=== PATIENT | female | born 1945 | race Caucasian/White ===

== ENCOUNTER 2020-02-17 13:53 | Outpatient (REF) | payer MEDICARE, OTHER, SELFPAY ==
--- NOTE | 2020-02-17 14:06 | MM_ITS ---
EXAMINATION: MM SCREENING DIGITAL BREAST TOMOSYNTHESIS, BILATERAL CLINICAL INFORMATION: Screening. Asymptomatic. The lifetime risk of breast cancer based on the Tyrer-Cuzick Model is 2%. COMPARISON: Mammography: 12/27/2018, 12/17/2017, 11/23/2016 TECHNIQUE: Digital breast tomosynthesis is performed in both the craniocaudal and mediolateral oblique views along with computer-aided detection (CAD). Synthesized 2D images are generated from the tomosynthesis. FINDINGS: There are scattered areas of fibroglandular density (ACR BI-RADS breast composition Category b). There are no significant masses, abnormal calcifications, or other abnormalities. The axillary nodes are stable. Skin contours are smooth. No significant changes from prior exams. MM/MM tomosynthesis screening BI IMPRESSION: No significant changes from prior studies. ASSESSMENT: BI-RADS 2: Benign RECOMMENDATION: Routine annual mammography screening. This patient's information was entered into a reminder system with a target due date for their next mammogram.
== END 2020-02-17 13:54 | disposition home or self-care (01) ==
LOC: HO.MAMMO 13:53
PROVIDERS: PCP Internal Medicine; Visit Provider Internal Medicine
DX: Z12.31 Encounter for screening mammogram for malignant neoplasm of breast (principal)
CPT/HCPCS: 77063; 77067

== ENCOUNTER 2021-03-12 14:04 | Outpatient (REF) | payer MEDICARE, OTHER, SELFPAY ==
--- NOTE | ~2021-03-12 | MM_ITS ---
EXAMINATION: MM SCREENING DIGITAL BREAST TOMOSYNTHESIS, BILATERAL CLINICAL INFORMATION: Screening. Asymptomatic. The lifetime risk of breast cancer based on the Tyrer-Cuzick Model is 2%. COMPARISON: Mammography: 02/17/2020, 12/27/2018, 12/17/2017 TECHNIQUE: Digital breast tomosynthesis is performed in both the craniocaudal and mediolateral oblique views along with computer-aided detection (CAD). Synthesized 2D images are generated from the tomosynthesis. FINDINGS: There are scattered areas of fibroglandular density (ACR BI-RADS breast composition Category b). There are no significant masses, abnormal calcifications, or other abnormalities. Parenchymal pattern is similar to prior studies. There is no developing density or architectural abnormality. Axillary nodes are stable. Skin contours are smooth. No significant changes. MM/MM tomosynthesis screening BI IMPRESSION: No mammographic evidence of malignancy. ASSESSMENT: BI-RADS 2: Benign RECOMMENDATION: Routine annual mammography screening. This patient's information was entered into a reminder system with a target due date for their next mammogram.
== END 2021-03-12 14:05 | disposition home or self-care (01) ==
LOC: HO.MAMMO 14:04
PROVIDERS: PCP Internal Medicine; Visit Provider Internal Medicine
DX: Z12.31 Encounter for screening mammogram for malignant neoplasm of breast (principal)
CPT/HCPCS: 77063; 77067

== ENCOUNTER 2021-04-03 14:31 | Outpatient (REF) | payer MEDICARE, OTHER, SELFPAY ==
[2021-04-03 15:08] LABS: MANUAL DIFF FLAG NO
[2021-04-03 15:24] LABS: Basophils Percent Auto 0.3 % (0-2); Eosinophils Absolute Auto 0.1 X10*3/uL (0.0-0.4); Eosinophils Percent Auto 1.4 % (0-4); Hematocrit 42.1 % (37.0-47.0); Hemoglobin 13.6 g/dl (12.0-16.0); Imm Gran Abs Auto 0.03 X10*3/uL (0.00-0.03); Imm Gran Pct Auto 0.3 % (0.0-0.4); Lymphocytes Absolute Auto 2.5 X10*3/uL (1.2-4.9); Lymphocytes Percent Auto 25.6 % (20-40); Mean Corpuscular HGB Conc 32.3 g/dl (31.0-35.0); Mean Corpuscular Hemoglobin 27.5 pg (27.0-33.0); Mean Corpuscular Volume 85.2 fL (80.0-98.0); Mean Platelet Volume 9.7 fL (9.4-12.3); Monocytes Absolute Auto 1.2 X10*3/uL (0.1-1.2); Monocytes Percent Auto 12.3 % (2-11); Neutrophils Absolute Auto 5.8 x10*3/uL (2.0-8.3); Neutrophils Percent Auto 60.1 % (45-73); Platelet Count 284 X10*3/uL (160-400); Red Blood Count 4.94 X10*6/uL (4.20-5.50); Red Cell Distribution Width 13.9 % (11.0-16.0); White Blood Count 9.7 X10*3/uL (4.8-10.8)
[2021-04-03 16:10] LABS: T4 Thyroxine 5.6 ug/dL (4.5-12.0); Thyroid Stimulating Hormone 1.62 uIU/mL (0.32-4.0)
== END 2021-04-03 14:32 | disposition home or self-care (01) ==
LOC: HO.LAB 14:31
PROVIDERS: Absent Provider Internal Medicine; PCP Internal Medicine; Visit Provider Internal Medicine Gastroenterology
DX: R19.7 Diarrhea, unspecified (principal)
CPT/HCPCS: 36415; 84436; 84443; 85025

== ENCOUNTER 2021-04-18 09:07 | Outpatient (REF) | payer MEDICARE, OTHER, SELFPAY ==
[2021-04-18 09:51] LABS: Leukocytes Stool Qualitative NEGATIVE (NEGATIVE)
[2021-04-18 10:27] LABS: CDiff Gene PCR NEGATIVE (Negative)
== END 2021-04-18 09:08 | disposition home or self-care (01) ==
LOC: HO.LNP 09:07
PROVIDERS: PCP Internal Medicine; Visit Provider Internal Medicine Gastroenterology
DX: R19.7 Diarrhea, unspecified (principal)
CPT/HCPCS: 87045; 87046; 87177; 87209; 87493; 89055

== ENCOUNTER 2021-12-02 07:04 | Day surgery (SDC) | payer MEDICARE, OTHER, SELFPAY ==
--- NOTE | 2021-12-01 09:46 | HO.ANESPROP2 ---
Documented by User: Rena Grijalva NP 12/01/21 12:33 HPI - Anesthesia Eval Consult details Narrative: 76yo F for Colonoscopy [facility] Past Medical History Medical History (Updated 12/01/21 @ 11:54 by Sadie Sethi RN) Abnormal colonoscopy Diabetes mellitus DJD (degenerative joint disease) High cholesterol HTN (hypertension) Tubular adenoma of colon Surgical History Surgical History (Updated 12/02/21 @ 07:21 by Kyleigh Temple) H/O colonoscopy H/O eye surgery H/O hernia repair H/O thumb surgery H/O: hysterectomy S/P trigger finger release Social History Social History Patient Tobacco Use Status: Former Tobacco user Quit Date: 2012 Years Smoked: 40 Smoked in Last 30 Days: No Use of substances other than those prescribed or required for medical reasons: No Are you DNR?: No Advance Directives: No Advance Directives Information Provided: Yes Meds Allergies Allergy/AdvReac Type Severity Reaction Status Date / Time lisinopril Allergy Severe Cough Verified 12/02/21 07:34 amlodipine [From Norvasc] Allergy Mild Swelling Verified 12/02/21 07:34 irbesartan [From Avapro] Allergy Mild Swelling Verified 12/02/21 07:34 latex [Latex] Allergy Mild RASH Verified 12/02/21 07:19 meperidine [Meperidine] Allergy Mild NAUSEA & Verified 12/02/21 07:19 VOMITING oxycodone Allergy Mild AGITATION Verified 12/02/21 08:02 propoxyphene Allergy Mild AGITATION Verified 12/02/21 07:19 [From Darvocet A500] nickel Allergy Rash Verified 12/02/21 08:02 Home Medications Medication Instructions Recorded Confirmed Last Taken Type atorvastatin 80 mg tablet 1 tab PO DAILY 12/01/21 12/02/21 Unknown History cyclosporine 0.05 % eye drops in a 1 drp ophthalmic (eye) BID 12/01/21 12/02/21 Unknown History dropperette (Restasis) metformin 750 mg tablet,extended 1 tab PO BID 12/01/21 12/02/21 12/01/21 History release 24 hr metoprolol succinate 100 mg 1 tab PO DAILY 12/01/21 12/02/21 Unknown History tablet,extended release 24 hr omeprazole 20 mg capsule,delayed 1 cap PO DAILY 12/01/21 12/02/21 Unknown History release spironolactone 50 mg tablet 1 tab PO DAILY 12/01/21 12/02/21 Unknown History Exam Exam Date and Time: December 01, [id number] Assessment and Plan Assessment Anesthesia Assessment: Chart Reviewed Documented by User: Brendan Dye MD 12/02/21 17:14 [facility] Past Medical History Medical History (Updated 12/01/21 @ 11:54 by Sadie Sethi RN) Abnormal colonoscopy Diabetes mellitus DJD (degenerative joint disease) High cholesterol HTN (hypertension) Tubular adenoma of colon Family History Family history of problems with anesthesia: No Surgical History Surgical History (Updated 12/02/21 @ 07:21 by Kyleigh Temple) H/O colonoscopy H/O eye surgery H/O hernia repair H/O thumb surgery H/O: hysterectomy S/P trigger finger release History of Problems with Anesthesia: No Social History Social History Patient Tobacco Use Status: Former Tobacco user Quit Date: 2012 Years Smoked: 40 Smoked in Last 30 Days: No Use of substances other than those prescribed or required for medical reasons: No Are you DNR?: No Advance Directives: No Advance Directives Information Provided: Yes Meds Allergies Allergy/AdvReac Type Severity Reaction Status Date / Time lisinopril Allergy Severe Cough Verified 12/02/21 07:34 amlodipine [From Norvasc] Allergy Mild Swelling Verified 12/02/21 07:34 irbesartan [From Avapro] Allergy Mild Swelling Verified 12/02/21 07:34 latex [Latex] Allergy Mild RASH Verified 12/02/21 07:19 meperidine [Meperidine] Allergy Mild NAUSEA & Verified 12/02/21 07:19 VOMITING oxycodone Allergy Mild AGITATION Verified 12/02/21 08:02 propoxyphene Allergy Mild AGITATION Verified 12/02/21 07:19 [From Darvocet A500] nickel Allergy Rash Verified 12/02/21 08:02 Home Medications Medication Instructions Recorded Confirmed Last Taken Type atorvastatin 80 mg tablet 1 tab PO DAILY 12/01/21 12/02/21 Unknown History cyclosporine 0.05 % eye drops in a 1 drp ophthalmic (eye) BID 12/01/21 12/02/21 Unknown History dropperette (Restasis) metformin 750 mg tablet,extended 1 tab PO BID 12/01/21 12/02/21 12/01/21 History release 24 hr metoprolol succinate 100 mg 1 tab PO DAILY 12/01/21 12/02/21 Unknown History tablet,extended release 24 hr omeprazole 20 mg capsule,delayed 1 cap PO DAILY 12/01/21 12/02/21 Unknown History release spironolactone 50 mg tablet 1 tab PO DAILY 12/01/21 12/02/21 Unknown History Exam Airway Mallampati Class: IV TM Dist: >3cm Neck ROM: Full Loose/Missing/Broken Teeth: Yes (Caps ) Heart: S1,S2 Lungs: b/l breath sounds Assessment and Plan Assessment Anesthesia Assessment: Anesthesia Plan Discussed Final Anesthetic Review Family History of Problems with Anesthesia: No History of Problems with Anesthesia: No NPO: Yes ASA Class: II Final Preanesthetic Review: Meds/Allgs Chart Reviewed, Consent Obtained/Reviewed and Anes Risks/Benef Reviewed Patient Risk: Intermediate Procedure Risk: Intermediate Anesthetic Plan Anesthetic Plan: MAC: Disposition: Standard PACU
[2021-12-02 07:21] VITALS: BMI 32.3
[2021-12-02 07:30] LABS: Glucose, Whole Blood 140 mg/dL (60-115)
[2021-12-02 07:32] VITALS: BP 151/91; PULSE 69; RESP 16; TEMP 36.2; O2SAT 95
[2021-12-02] MEDS: Lactated Ringers 1,000 ML 100 ML IVCONT (07:46)
--- NOTE | 2021-12-02 08:05 | MHC.SHP ---
Pre-Procedural Eval Section A Date of Service: 12/02/21 Section B Chief Complaint: screening Details of Present Illness: see h&P Relevant Family History (Specify if Yes): No Relevant Social History: None Present Medications: see Short Stay Collaborative assessment Medical History: Significant History History of Previous Operations: No relevant previous surgery Allergies: Allergies Allergy/AdvReac Type Severity Reaction Status Date / Time lisinopril Allergy Severe Cough Verified 12/02/21 07:34 amlodipine [From Norvasc] Allergy Mild Swelling Verified 12/02/21 07:34 irbesartan [From Avapro] Allergy Mild Swelling Verified 12/02/21 07:34 latex [Latex] Allergy Mild RASH Verified 12/02/21 07:19 meperidine [Meperidine] Allergy Mild NAUSEA & Verified 12/02/21 07:19 VOMITING oxycodone Allergy Mild AGITATION Verified 12/02/21 08:02 propoxyphene Allergy Mild AGITATION Verified 12/02/21 07:19 [From Darvocet A500] nickel Allergy Rash Verified 12/02/21 08:02 Review of Systems Sugical H&P ROS: Negative: Constitution, Cardiovascular, Respiratory, Neurological, Psychiatric, Hem-Onc, Allergic/Immunologic, Gastrointestinal, Genitourinary, Musculoskeletal, Integumentary, Endocrine and Eyes/Ears/Nose/Throat Exam Surgical H&P Exam: Normal: HEENT, Normal: Heart, Normal: Lungs, Normal: Extremities, Normal: Abdomen, Normal: Skin and Normal: Neurological Plan Diagnosis/Plan: Unchanged I have reviewed the history and physical and performed a pertinent physical examination on my patient. No changes have occurred unless specified.
[2021-12-02 08:53] VITALS: BP 125/68; PULSE 74; RESP 16; TEMP 36.2; O2SAT 92
--- NOTE | 2021-12-02 08:53 | P.BOP_ITS ---
Brief Operative Note Date of Service: 12/02/21 Pre-op diagnosis: diarrhea Post-op diagnosis: same Procedure: colonoscopy Surgeon: Scottie Shultz Anesthesia: MAC Was an Osteopathic Physician used for this Procedure?: No Estimated blood loss (mL): 2 Pathology: other Condition: stable Disposition: PACU
[2021-12-02 09:08] VITALS: BP 150/77; PULSE 64; RESP 16; TEMP 36.1; O2SAT 97
[2021-12-02 09:23] VITALS: BP 129/87; PULSE 60; RESP 16; TEMP 36.1; O2SAT 97
[2021-12-02 09:38] VITALS: BP 150/76; PULSE 57; RESP 16; TEMP 36.1; O2SAT 95
--- NOTE | 2021-12-02 21:10 | OP_ITS ---
SURGEON: Scottie Shultz MD INDICATIONS: Diarrhea. PREOPERATIVE DIAGNOSIS: POSTOPERATIVE DIAGNOSIS: PROCEDURE PERFORMED: Colonoscopy to the cecum with biopsy and snare polypectomy as well as cauterization of colon polyps. ESTIMATED BLOOD LOSS: COMPLICATIONS: ANESTHESIA: Monitored anesthesia care. ASSISTANTS: SPECIMENS: DESCRIPTION OF PROCEDURE: History and physical performed. The procedure was performed on 12/02/2021. The patient was placed in the left lateral decubitus position. A digital rectal exam was performed and was found to be normal. The Olympus pediatric video colonoscope was introduced into the rectum and advanced to the cecum without difficulty. The cecum was identified by transillumination, palpation, and identification of ileocecal valve. Examination was performed. The scope was removed. She tolerated the procedure well and was transferred to the recovery area in stable condition. FINDINGS: The terminal ileum was not examined. The visualized colonic mucosa was normal. There was some liquid stool limiting sensitivity examination in the right colon, cecum, and sigmoid. Multiple colonic polyps were identified and removed with a combination of biopsy forceps, snare polypectomy and cauterization of polyps. All were less than 10 mm. The polyps were located in the cecum, right colon, and 5 polyps at 20 cm. There were other hyperplastic appearing polyps in the rectosigmoid that were not removed. Random biopsies were obtained from the right colon and from the sigmoid due to the patient's history of diarrhea. No colitis was identified. Retroflexed examination showed hypertrophic anal papillae. IMPRESSION: Colon polyps. RECOMMENDATION: Follow up the biopsy results. MD CARLOS Capellan/YAWL / [id number]
== END 2021-12-02 10:01 | disposition home or self-care (01) ==
PROVIDERS: PCP Internal Medicine; Visit Provider Internal Medicine Gastroenterology
PROC: 0DJD8ZZ Inspection of Lower Intestinal Tract, Via Natural or Artificial Opening Endoscopic (ICD-10-PCS; CPT 45378; principal; 2021-12-02 08:00)
DX: Z12.11 Encounter for screening for malignant neoplasm of colon (principal); Z86.010 Personal history of colon polyps; D12.0 Benign neoplasm of cecum; K63.5 Polyp of colon; K62.89 Other specified diseases of anus and rectum; R19.7 Diarrhea, unspecified; I10 Essential (primary) hypertension; E78.00 Pure hypercholesterolemia, unspecified; E11.9 Type 2 diabetes mellitus without complications; Z79.84 Long term (current) use of oral hypoglycemic drugs; Z79.899 Other long term (current) drug therapy; Z88.8 Allergy status to other drugs, medicaments and biological substances; Z91.040 Latex allergy status; Z87.891 Personal history of nicotine dependence
CPT/HCPCS: 45385; 45380; 82947; 88305

== ENCOUNTER 2022-03-16 13:26 | Outpatient (REF) | payer MEDICARE, OTHER, SELFPAY ==
--- NOTE | ~2022-03-16 | MM_ITS ---
EXAMINATION: MM SCREENING DIGITAL BREAST TOMOSYNTHESIS, BILATERAL CLINICAL INFORMATION: Screening. Asymptomatic. The lifetime risk of breast cancer based on the Tyrer-Cuzick Model is 2.0%. COMPARISON: Mammography: March 12, 2021 and studies dating back to September 02, 2015 TECHNIQUE: Digital breast tomosynthesis is performed in both the craniocaudal and mediolateral oblique views along with computer-aided detection (CAD). Synthesized 2D images are generated from the tomosynthesis. FINDINGS: There are scattered areas of fibroglandular density (ACR BI-RADS breast composition Category b). There are no significant masses, abnormal calcifications, or other abnormalities. MM/MM tomosynthesis screening BI IMPRESSION: No significant changes from prior exam. ASSESSMENT: BI-RADS 1: Negative RECOMMENDATION: Routine annual mammography screening. This patient's information was entered into a reminder system with a target due date for their next mammogram.
== END 2022-03-16 13:27 | disposition home or self-care (01) ==
LOC: HO.MAMMO 13:26
PROVIDERS: PCP Internal Medicine; Visit Provider Internal Medicine
DX: Z12.31 Encounter for screening mammogram for malignant neoplasm of breast (principal)
CPT/HCPCS: 77063; 77067

== ENCOUNTER 2022-08-19 09:39 | Outpatient (REF) | payer OTHER, SELFPAY ==
--- NOTE | ~2022-08-19 | XR_ITS ---
EXAMINATION: XR SHOULDER, RIGHT CLINICAL INFORMATION: Pain COMPARISON: None available. TECHNIQUE: AP external rotation, Grashey, scapular Y, and axillary views of the right shoulder. FINDINGS: Extensive calcific tendinitis along the course of the rotator cuff. Notable degeneration of the AC joint. Minor cystic changes into the greater tuberosity. No acute findings or focal bony lesion. XR/XR shoulder RT min 2V IMPRESSION: Calcific tendinitis as above.
== END 2022-08-19 09:40 | disposition home or self-care (01) ==
LOC: HO.HOSX 09:39
PROVIDERS: Visit Provider Orthopaedic Surgery
DX: M25.511 Pain in right shoulder (principal)
CPT/HCPCS: 73030; 99202

== ENCOUNTER 2022-08-19 10:46 | Outpatient (AMB) | payer OTHER, SELFPAY ==
--- NOTE | 2022-08-19 11:10 | A.OFFVIS_ITS ---
Intake Vital Signs 08/19/22 11:17 Height 5 ft 2 in Weight 180 lb BMI 32.9 Handedness Right Intake Visit Reasons: New Pt - Right Shoulder Pain Intake Note: Deborah is a 76 year old right hand dominant female who presents today as a new patient for a evaluation for her right shoulder pain and weakness. She describes her pain as sharp and severe in nature. Her pain has gotten worse over the last few years in spite of continued non operative treatment. She did injure her shoulder several years ago while lifting a heavy object. Since that time she has had difficulty lifting her right hand above shoulder height. She has done physical therapy for 12 weeks over the last 6 months which aggravated her pain. She has also had multiple injections over the last few years. The most recent injection gave her minimal relief. She has tried Tylenol and anti- inflammatory medicines which gave her only mild relief. Allergies lisinopril Allergy (Severe, Verified 08/19/22 11:17) Cough amlodipine [From Norvasc] Allergy (Mild, Verified 08/19/22 11:17) Swelling irbesartan [From Avapro] Allergy (Mild, Verified 08/19/22 11:17) Swelling latex [Latex] Allergy (Mild, Verified 08/19/22 11:17) RASH meperidine [Meperidine] Allergy (Mild, Verified 08/19/22 11:17) NAUSEA & VOMITING oxycodone Allergy (Mild, Verified 08/19/22 11:17) AGITATION propoxyphene [From Darvocet A500] Allergy (Mild, Verified 08/19/22 11:17) AGITATION nickel Allergy (Verified 08/19/22 11:17) Rash Medication List - Last Reviewed 08/19/22 by Juliette Montero atorvastatin 1 tab PO DAILY cyclosporine 0.05% (Restasis) 1 drp ophthalmic (eye) BID metformin ER 1 tab PO BID metoprolol succinate ER 1 tab PO DAILY omeprazole 1 cap PO DAILY spironolactone 1 tab PO DAILY PFSH Medical History Abnormal colonoscopy Diabetes mellitus DJD (degenerative joint disease) High cholesterol HTN (hypertension) Tubular adenoma of colon Surgical History H/O colonoscopy H/O eye surgery H/O hernia repair H/O thumb surgery H/O: hysterectomy S/P trigger finger release Social History Patient Tobacco Use Status: Former Tobacco user Quit Date: 2012 Years Smoked: 40 Physical Exam Vital Signs: BMI result Body Mass Index 32.9 Const Other: Well-nourished well-developed very friendly female awake alert and oriented x3 in no acute distress Extrem Other: Bilateral upper extremity examination shows good capillary refill, no skin lesions noted, normal sensation light touch Right shoulder examination shows decreased range of motion when compared to her left shoulder, 4/5 strength with supraspinatus testing, positive impingement signs, tenderness over her acromioclavicular joint, no instability Results Reviewed Results Reviewed: X-rays of the patient's right shoulder taken today show severe acromioclavicular joint narrowing and type 2 acromion, no acute bony abnormalities Assessment & Plan Assessment & Plan (1) Right shoulder pain: Code(s): M25.511 - Pain in right shoulder Plan Ms. Leavitt presents with progressively worsening right shoulder pain and weakness most likely due to a full-thickness rotator cuff tear. Thus, I will send the patient for an MRI for further evaluation. I will see her back following the MRI to further discuss the findings and treatment options. She will continue with her range of motion exercises in the meantime to prevent stiffness. Feel free to call me at any time should questions regarding her orthopedic management arise. Thank you very much for asking me to see this very friendly patient. I spent 22 minutes in reviewing the patient's records and imaging studies, seeing the patient and documenting in the medical record. Orders: Orders XR shoulder RT min 2V Today M25.511 - Pain in right shoulder MR shoulder RT wo con Today M25.511 - Pain in right shoulder Coding Level of Care Code New Pt Level 2 (82741) Diagnoses Right shoulder pain M25.511
[2022-08-19 11:17] VITALS: BMI 32.9
== END 2022-08-19 11:32 | disposition home or self-care (01) ==
PROVIDERS: PCP Internal Medicine; Visit Provider Orthopaedic Surgery
DX: M25.511 Pain in right shoulder (principal)
CPT/HCPCS: 99202

== ENCOUNTER 2022-10-08 13:27 | Outpatient (REF) | payer OTHER, SELFPAY ==
--- NOTE | ~2022-10-08 | MR_ITS ---
EXAMINATION: MR SHOULDER WITHOUT CONTRAST, RIGHT CLINICAL INFORMATION: Right shoulder pain with movement. COMPARISON: Right shoulder radiographs dated 08/19/2022. TECHNIQUE: MRI of the shoulder without contrast was performed on a high-field scanner. FINDINGS: ROTATOR CUFF: Complete versus near-complete supraspinatus tendon tear with the possibility of a few thin posterior tendon fibers remaining intact. Tearing measures up to 3.3 x 4.2 cm (AP x ML). Retraction of the torn tendon fibers to the glenohumeral articulation. Moderate infraspinatus tendinosis with articular surface and intrasubstance partial tearing. Moderate subscapularis tendinosis with high-grade articular surface partial tearing measuring up to 3.5 cm in mL dimension. There are probable small full-thickness components to the tear. Mild supraspinatus muscle atrophy. BICEPS: Significant attenuation and irregularity of the proximal long head biceps tendon, consistent with high-grade longitudinal partial tearing. There are thin irregular tendon fibers remaining intact. 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 Mild curve of the acromial undersurface with small subacromial spurs. Moderate acromioclavicular osteoarthritis. LABRUM/CAPSULE: Attenuation and irregularity diffusely throughout the labrum, consistent with degenerative tearing. Nondisplaced undersurface tearing of the posterosuperior and posterior labrum. Intact inferior joint capsule. GLENOHUMERAL JOINT/MARROW: Articular cartilage thinning with near full-thickness loss of the superior humeral head. Small marginal osteophytes. Moderate joint effusion. MR/MR shoulder RT wo con IMPRESSION: 1. Complete versus near-complete supraspinatus tendon tear with a few thin posterior tendon fibers remaining intact. Retraction of the torn tendon fibers to the glenohumeral articulation. Moderate infraspinatus tendinosis with articular surface and intrasubstance partial tearing. Moderate subscapularis tendinosis with high-grade articular surface partial tearing measuring 3.5 cm in AP dimension with probable small full-thickness components. 2. High-grade longitudinal partial tearing of the proximal long head biceps tendon with thin irregular tendon fibers remaining intact. 3. 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 4. Diffuse degenerative tearing of the glenoid labrum. 5. Mild glenohumeral osteoarthritis. Moderate joint effusion.
== END 2022-10-08 13:28 | disposition home or self-care (01) ==
LOC: HO.MRI 13:27
PROVIDERS: PCP Internal Medicine; Visit Provider Orthopaedic Surgery
DX: M25.511 Pain in right shoulder (principal)
CPT/HCPCS: 73221

== ENCOUNTER 2022-10-21 09:40 | Outpatient (AMB) | payer OTHER, SELFPAY ==
--- NOTE | 2022-10-21 09:40 | A.OFFVIS_ITS ---
Intake Vital Signs 10/21/22 09:41 Height 5 ft 2 in Weight 180 lb BMI 32.9 Intake Visit Reasons: ov- MRI Shoulder RT Intake Note: Deborah is a 76 year old right hand dominant female who presents today as a new patient for a evaluation for her right shoulder pain and weakness. She describes her pain as sharp and severe in nature. Her pain has gotten worse over the last few years in spite of continued non operative treatment. She did injure her shoulder several years ago while lifting a heavy object. Since that time she has had difficulty lifting her right hand above shoulder height. She has done physical therapy for 12 weeks over the last 6 months which aggravated her pain. She has also had multiple injections over the last few years. The most recent injection gave her minimal relief. She has tried Tylenol and anti- inflammatory medicines which gave her only mild relief. Allergies lisinopril Allergy (Severe, Verified 10/21/22 09:41) Cough amlodipine [From Norvasc] Allergy (Mild, Verified 10/21/22 09:41) Swelling irbesartan [From Avapro] Allergy (Mild, Verified 10/21/22 09:41) Swelling latex [Latex] Allergy (Mild, Verified 10/21/22 09:41) RASH meperidine [Meperidine] Allergy (Mild, Verified 10/21/22 09:41) NAUSEA & VOMITING oxycodone Allergy (Mild, Verified 10/21/22 09:41) AGITATION propoxyphene [From Darvocet A500] Allergy (Mild, Verified 10/21/22 09:41) AGITATION nickel Allergy (Verified 10/21/22 09:41) Rash Medication List - Last Reconciled 10/21/22 by Sam Castro MD atorvastatin 1 tab PO DAILY cyclosporine 0.05% (Restasis) 1 drp ophthalmic (eye) BID metformin ER 1 tab PO BID metoprolol succinate ER 1 tab PO DAILY omeprazole 1 cap PO DAILY spironolactone 1 tab PO DAILY PFSH Medical History Abnormal colonoscopy Diabetes mellitus DJD (degenerative joint disease) High cholesterol HTN (hypertension) Tubular adenoma of colon Surgical History H/O colonoscopy H/O eye surgery H/O hernia repair H/O thumb surgery H/O: hysterectomy S/P trigger finger release Social History Patient Tobacco Use Status: Former Tobacco user Quit Date: 2012 Years Smoked: 40 Physical Exam Vital Signs: BMI result Body Mass Index 32.9 Const Other: Well-nourished well-developed very friendly female awake alert and oriented x3 in no acute distress Extrem Other: Bilateral upper extremity examination shows good capillary refill, no skin lesions noted, normal sensation light touch Right shoulder examination shows almost full range of motion when compared to her left shoulder, 4/5 strength with supraspinatus testing, no tenderness over her acromion or acromioclavicular joint, positive impingement signs, no instability Results Reviewed Results Reviewed: MRI of the patient's right shoulder shows a type 3 acromion as well as a full- thickness tear of the supraspinatus tendon and an os acromiale Assessment & Plan Assessment & Plan (1) Rotator cuff insufficiency of right shoulder: Code(s): M25.311 - Other instability, right shoulder Plan: Ms. Leavitt presents with progressively worsening right shoulder pain and weakness due to impingement syndrome and a full-thickness rotator cuff tear. I had a lengthy discussion with the patient regarding the treatment options. At this point she has failed continued non operative treatments. The risks and benefits of right shoulder surgery were discussed at length with the patient. The patient wishes to proceed with surgery. Surgery will most likely involve right shoulder diagnostic arthroscopy with acromioplasty and rotator cuff repair. We did discuss the finding of an os acromiale on her MRI which has been present her entire life. We did discuss the significance of the bony fragment. The patient does not wish for screws to be placed across the fragment. I do believe that smoothing of the acromion should significantly improve her symptoms along with rotator cuff repair. The The patient will contact my office to pick a surgery date. She will follow-up as instructed. Feel free to call me at any time should questions regarding her orthopedic management arise. I spent 22 minutes in reviewing the patient's records and imaging studies, seeing the patient and documenting in the medical record. Coding Level of Care Code Est Pt Level 2 (02303) Diagnoses Rotator cuff insufficiency of right shoulder M25.311
[2022-10-21 09:41] VITALS: BMI 32.9
== END 2022-10-21 10:05 | disposition home or self-care (01) ==
PROVIDERS: PCP Internal Medicine; Visit Provider Orthopaedic Surgery
DX: M25.311 Other instability, right shoulder (principal)
CPT/HCPCS: 99212

== ENCOUNTER → 2022-10-21 09:40 | Outpatient (BNVA) | payer OTHER, SELFPAY | PROVIDERS: PCP Internal Medicine; Visit Provider Orthopaedic Surgery | DX: M25.311 Other instability, right shoulder (principal) | CPT/HCPCS: 99212 ==

== ENCOUNTER 2022-11-13 06:56 | Day surgery (SDC) | payer OTHER, SELFPAY ==
[2022-11-11 12:52] VITALS: BMI 32.9
--- NOTE | 2022-11-12 20:06 | HO.ANESPROP2 ---
HPI - Anesthesia Eval Consult details Narrative: Rotator cuff tear PMFSH Active Problems Active Problems: All Active Problems (Updated 10/21/22 @ 10:08 by Sam Castro MD) Rotator cuff insufficiency of right shoulder (Acute) Right shoulder pain (Acute) Past Medical History Medical History Abnormal colonoscopy Diabetes mellitus DJD (degenerative joint disease) High cholesterol HTN (hypertension) Tubular adenoma of colon Family History Family history of problems with anesthesia: No Surgical History Surgical History H/O colonoscopy H/O eye surgery H/O hernia repair H/O thumb surgery H/O: hysterectomy S/P trigger finger release History of Problems with Anesthesia: No Social History Social History Patient Tobacco Use Status: Former Tobacco user Quit Date: 2012 Years Smoked: 40 Meds Allergies Allergy/AdvReac Type Severity Reaction Status Date / Time lisinopril Allergy Severe Cough Verified 10/21/22 09:41 amlodipine [From Norvasc] Allergy Mild Swelling Verified 10/21/22 09:41 irbesartan [From Avapro] Allergy Mild Swelling Verified 10/21/22 09:41 latex [Latex] Allergy Mild RASH Verified 10/21/22 09:41 meperidine [Meperidine] Allergy Mild NAUSEA & Verified 10/21/22 09:41 VOMITING oxycodone Allergy Mild AGITATION Verified 10/21/22 09:41 propoxyphene Allergy Mild AGITATION Verified 10/21/22 09:41 [From Darvocet A500] nickel Allergy Rash Verified 10/21/22 09:41 Active Medications: Current Medications Cefazolin Sodium/Dextrose (Ancef) 2 gm in 50 mls @ 100 mls/hr IV PREOP ONE Stop: 11/13/22 02:33 Home Medications Medication Instructions Recorded Confirmed Last Taken Type atorvastatin 80 mg tablet 1 tab PO DAILY 12/01/21 10/21/22 Unknown History cyclosporine 0.05 % eye drops in a 1 drp ophthalmic (eye) BID 12/01/21 10/21/22 Unknown History dropperette (Restasis) metformin 750 mg tablet,extended 1 tab PO BID 12/01/21 10/21/22 12/01/21 History release 24 hr metoprolol succinate 100 mg 1 tab PO DAILY 12/01/21 10/21/22 Unknown History tablet,extended release 24 hr omeprazole 20 mg capsule,delayed 1 cap PO DAILY 12/01/21 10/21/22 Unknown History release spironolactone 50 mg tablet 1 tab PO DAILY 12/01/21 10/21/22 Unknown History Exam Exam Date and Time: November 12, 20222005 Height,Weight and Vital Signs: Height 5 ft 2 in Weight 81.647 kg Airway Mallampati Class: II TM Dist: >3cm Heart: rrr Lungs: cta Assessment and Plan Assessment Anesthesia Assessment: Anesthesia Plan Discussed and Chart Reviewed Final Anesthetic Review Family History of Problems with Anesthesia: No History of Problems with Anesthesia: No ASA Class: III Final Preanesthetic Review: No Changes in Pt Med Stat, Meds/Allgs Chart Reviewed, Consent Obtained/Reviewed and Anes Risks/Benef Reviewed Patient Risk: Intermediate Procedure Risk: Intermediate Anesthetic Plan Anesthetic Plan: GA, Regional Block and Agree w/ Assess. and Plan Disposition: Standard PACU
[2022-11-13] VITALS (13 sets, daily range): BP systolic 108–165; BP diastolic 51–90; PULSE 48–59; RESP 16–18; TEMP 36.1–36.4; O2SAT 92–97; BMI 32.0
[2022-11-13 08:17] LABS: Glucose, Whole Blood 127 mg/dL (60-115)
--- NOTE | 2022-11-13 12:01 | PM.OP ---
Brief Operative Note Date of Service: 11/13/22 Pre-op diagnosis: Right shoulder impingement syndrome, right shoulder rotator cuff Post-op diagnosis: same Procedure: Right shoulder diagnostic arthroscopy with arthroscopic acromioplasty and mini-open rotator cuff repair Implants: One suture anchor - [employer] Intraline 5.5 mm Surgeon: Sam Castro MD Anesthesia: GETA and regional Was an Radiographer used for this Procedure?: Yes Radiographer: Callie Mccarty Estimated blood loss (mL): 15 Pathology: none sent Condition: stable Disposition: PACU
--- NOTE | 2022-11-13 12:03 | W.PM.OPN ---
Operative Note Operative Note Date of Service: 11/13/22 Narrative: After the patient was identified as Deborah Leavitt and their right shoulder was initialed by myself the patient was brought to the holding area where a right shoulder interscalene regional block was performed by the anesthesiologist in routine fashion. The patient was then brought to the operating room where general anesthesia was induced by the anesthesiologist in routine fashion. The patient was given 2 g of IV Ancef preoperatively for infection prophylaxis. Examination under anesthesia of the patient's right shoulder showed full passive range of motion of the patient's right shoulder when compared to the left. The patient was gently positioned in the beach chair position with all bony prominences well padded. The patient's right shoulder region and upper extremity were prepped and draped in sterile fashion. A formal time-out was completed. A #11 scalpel blade was used to make a posterior portal 2 cm inferior and 1 cm medial to the posterolateral corner of the acromion. Blunt trocar technique was used to enter the glenohumeral joint in routine fashion. An anterior portal was made just lateral to the coracoid process after proper positioning was confirmed using a spinal needle. Diagnostic arthroscopy showed minimal degenerative changes of the glenoid and humeral head articular surfaces. There was a full-thickness tear of the supraspinatus tendon. There was tearing of approximately 80% of the biceps tendon. Thus, a biceps tenotomy was performed using the arthroscopic shaver and arthroscopic biter. There was no inflammation of the anterior joint capsule. The arthroscope was then placed from the posterior portal into the subacromial space. A lateral portal was made 2 fingerbreadths lateral to the anterior lateral corner of the acromion. The ArthroCare Wand was used to ablate soft tissues along the undersurface of the acromion as well as to excise the coracoacromial ligament. There was a sharp spur along the undersurface of the acromion which was removed using the hooded bur. The arthroscope was then placed into the lateral portal and the acromioplasty was completed with the bur in the posterior portal using the posterior aspect of the acromion as a cutting block. In order to prevent destabilization of the os acromiale no distal clavicle excision was performed. Any remaining bursal tissue was removed using the arthroscopic shaver. The subacromial space was irrigated and then drained. All arthroscopic instruments were removed. Sterile gloves were changed and the shoulder was once again prepped with Betadine. A #15 scalpel blade was used to extend the lateral portal to the lateral edge of the acromion. The subacromial tissues were dissected using electrocautery down to the superficial deltoid fascia. The trocar split in the anterior raphe of the deltoid was then extended to the lateral edge of the acromion using electrocautery and curved Chauhan scissors. Any remaining bursal tissue was removed using curved Chauhan scissors. Subacromial and subdeltoid adhesions were bluntly dissected. The undersurface of the acromion was palpated and it was smooth. A #2 Ethibond tag suture was placed into the supraspinatus tendon. The tendon was easily mobilized to its insertion point on the glenoid. The wound was irrigated with copious amounts of normal saline solution. One suture anchor was placed into the greater tuberosity in routine fashion. The rotator cuff repair was then performed using horizontal mattress sutures under minimal tension with the patient's elbow at their side. Following the repair the shoulder was taken through a full range of motion. The repair was stable. The wound was irrigated with copious amounts of normal saline solution. The superficial and deep deltoid fascia were closed with #1 Vicryl [id number] interrupted suture. The wound was once again irrigated. The subcutaneous tissues were closed with 2-0 Vicryl interrupted suture. The skin was closed with 3-0 Prolene subcuticular suture and Steri-Strips. The anterior and posterior portals were closed with 3-0 nylon interrupted suture. Dry sterile dressing was placed over all incisions. The patient's right upper extremity was placed into a sling. The patient was awoken and extubated in the operating room. The patient was transferred to the recovery room in stable condition.
--- NOTE | 2022-11-13 12:16 | PM.OP ---
Brief Operative Note Date of Service: 11/13/22 Pre-op diagnosis: see other brief op note Surgeon: Sam Castro MD Was an Mica Spreader used for this Procedure?: No Estimated blood loss (mL): 10
== END 2022-11-13 15:48 | disposition home or self-care (01) ==
PROVIDERS: PCP Internal Medicine; Visit Provider Orthopaedic Surgery
PROC: (CPT 29805; principal; 2022-11-13 09:10)
DX: M75.101 Unspecified rotator cuff tear or rupture of right shoulder, not specified as traumatic (principal); M75.41 Impingement syndrome of right shoulder; M19.011 Primary osteoarthritis, right shoulder; I10 Essential (primary) hypertension; E11.9 Type 2 diabetes mellitus without complications; Z79.84 Long term (current) use of oral hypoglycemic drugs; Z79.899 Other long term (current) drug therapy; Z88.8 Allergy status to other drugs, medicaments and biological substances; Z91.041 Radiographic dye allergy status
CPT/HCPCS: 23412; 29822; 29826; 82947; C1713; J0131; J0690; J0696; J1100; J1885; J2405

== ENCOUNTER → 2022-11-13 06:56 | Outpatient (BNV) | payer OTHER, SELFPAY | PROVIDERS: PCP Internal Medicine; Visit Provider Orthopaedic Surgery | DX: M75.41 Impingement syndrome of right shoulder (principal); S46.011A Strain of muscle(s) and tendon(s) of the rotator cuff of right shoulder, initial encounter | CPT/HCPCS: 23412; 29822; 29826 ==

== ENCOUNTER 2022-11-26 08:04 | Outpatient (REF) | payer OTHER, SELFPAY ==
--- NOTE | ~2022-11-26 | XR_ITS ---
EXAMINATION: XR SHOULDER, RIGHT CLINICAL INFORMATION: Right shoulder pain COMPARISON: MR right shoulder 10/08/2022. X-ray right shoulder 08/19/2022. TECHNIQUE: 2 views of the right shoulder. FINDINGS: Advanced degenerative changes at the acromioclavicular joint. Glenohumeral alignment preserved with spurring along the inferomedial aspect of the humeral head. A few faint calcifications are seen in the soft tissues along the superior lateral aspect of humeral head. Postsurgical changes with interval placement of a surgical screw in the humeral head. Hardware appears intact. XR/XR shoulder RT min 2V IMPRESSION: Postsurgical changes with interval placement of a surgical screw in the humeral head. Hardware appears intact.
== END 2022-11-26 08:05 | disposition home or self-care (01) ==
LOC: HO.HOSX 08:04
PROVIDERS: Visit Provider Orthopaedic Surgery
DX: M25.511 Pain in right shoulder (principal); Z79.899 Other long term (current) drug therapy
CPT/HCPCS: 73030

== ENCOUNTER 2022-11-26 10:41 | Outpatient (AMB) | payer OTHER, SELFPAY ==
--- NOTE | 2022-11-26 10:42 | A.OFFVIS_ITS ---
Intake Intake Visit Reasons: PO-Rt RTC Repair 11/13/22 DR Intake Note: Deborah 77 yr old female presents today for her Right RTC repair from 11/13/[address] Castro. Patient states she D/C pain med and is taking Alleve. She denies any fevers or chills. She has been resting her shoulder as per my instructions. Allergies lisinopril Allergy (Severe, Verified 11/26/22 10:43) Cough amlodipine [From Norvasc] Allergy (Mild, Verified 11/26/22 10:43) Swelling irbesartan [From Avapro] Allergy (Mild, Verified 11/26/22 10:43) Swelling latex [Latex] Allergy (Mild, Verified 11/26/22 10:43) RASH meperidine [Meperidine] Allergy (Mild, Verified 11/26/22 10:43) NAUSEA & VOMITING oxycodone Allergy (Mild, Verified 11/26/22 10:43) AGITATION propoxyphene [From Darvocet A500] Allergy (Mild, Verified 11/26/22 10:43) AGITATION nickel Allergy (Verified 11/26/22 10:43) Rash Medication List - Last Reconciled 11/26/22 by Sam Castro MD atorvastatin 1 tab PO DAILY [calcium ] cyclosporine 0.05% (Restasis) 1 drp ophthalmic (eye) BID hydrocodone-acetaminophen 5-325 mg 1 tab PO Q4H PRN 7 days metformin ER 1 tab PO BID metoprolol succinate ER 1 tab PO DAILY omeprazole 1 cap PO DAILY spironolactone 1 tab PO DAILY PFSH Medical History Abnormal colonoscopy Diabetes mellitus DJD (degenerative joint disease) High cholesterol HTN (hypertension) Tubular adenoma of colon Surgical History H/O colonoscopy H/O eye surgery H/O hernia repair H/O thumb surgery H/O: hysterectomy S/P trigger finger release Social History Patient Tobacco Use Status: Former Tobacco user Quit Date: 2013 Tobacco use type: Cigarette Years Smoked: 40 Second Hand Smoke Exposure: No Physical Exam Extrem Other: Right shoulder examination shows that the surgical incisions are healing well, no erythema, minimal discomfort with passive range of motion Results Reviewed Results Reviewed: X-rays of the patient's right shoulder show bony changes consisten with a cromioplasty, 1 suture anchor within the proximal humerus with no signs of loosening Assessment & Plan Assessment & Plan (1) Right shoulder pain: Code(s): M25.511 - Pain in right shoulder Plan: Ms. Leavitt doing well after undergoing right shoulder rotator cuff repair surgery on 11/13/2022. Her sutures were removed and Steri-Strips placed over her incisions. She can begin passive range of motion exercises. I will hold off on active lifting until she is 8 weeks out from surgery. I did give her a prescription to go to formal physical therapy if she chooses to do so. She will contact me prior to her follow-up appointment in 6 weeks should any questions or concerns arise. Feel free to call me at any time should questions regarding her orthopedic management arise. Orders: Orders XR shoulder RT min 2V Today M25.511 - Pain in right shoulder PT Evaluation and Treatment Today M25.511 - Pain in right shoulder Coding Level of Care Code Global (50257) Diagnoses Right shoulder pain M25.511
== END 2022-11-26 11:12 | disposition home or self-care (01) ==
PROVIDERS: PCP Internal Medicine; Visit Provider Orthopaedic Surgery
DX: M25.511 Pain in right shoulder (principal)
CPT/HCPCS: 99024

== ENCOUNTER 2023-01-07 11:40 | Outpatient (AMB) | payer OTHER, SELFPAY ==
--- NOTE | 2023-01-07 11:49 | A.OFFVIS_ITS ---
Intake Intake Visit Reasons: PO-Rt RTC Repair 11/13/22 Intake Note: Deborah is a 77 year old female who presents today for a post op appointment s/p Rt RTC Repair 11/13/22 . Patient is doing well just having some discomfort with sudden movements. She continues to go to formal physical therapy at [facility]. She denies any fevers or chills. Allergies lisinopril Allergy (Severe, Verified 01/07/23 11:49) Cough amlodipine [From Norvasc] Allergy (Mild, Verified 01/07/23 11:49) Swelling irbesartan [From Avapro] Allergy (Mild, Verified 01/07/23 11:49) Swelling latex [Latex] Allergy (Mild, Verified 01/07/23 11:49) RASH meperidine [Meperidine] Allergy (Mild, Verified 01/07/23 11:49) NAUSEA & VOMITING oxycodone Allergy (Mild, Verified 01/07/23 11:49) AGITATION propoxyphene [From Darvocet A500] Allergy (Mild, Verified 01/07/23 11:49) AGITATION nickel Allergy (Verified 01/07/23 11:49) Rash PFSH Medical History Abnormal colonoscopy Diabetes mellitus DJD (degenerative joint disease) High cholesterol HTN (hypertension) Tubular adenoma of colon Surgical History H/O colonoscopy H/O eye surgery H/O hernia repair H/O thumb surgery H/O: hysterectomy S/P trigger finger release Social History Patient Tobacco Use Status: Former Tobacco user Quit Date: 2013 Tobacco use type: Cigarette Years Smoked: 40 Second Hand Smoke Exposure: No Physical Exam Extrem Other: Physical examination of the patient's right shoulder shows the surgical incisions are well healed, no erythema, full active range of motion when compared to her left shoulder with minimal discomfort, no discomfort with resisted internal or external rotation Assessment & Plan Assessment & Plan (1) Rotator cuff insufficiency of right shoulder: Code(s): M25.311 - Other instability, right shoulder Plan Ms. Leavitt continues to do well after undergoing right shoulder rotator cuff repair surgery on 11/13/22. She will continue with her passive range of motion exercises to prevent stiffness. She can now progress to gentle active range of motion exercises. The do's and don'ts of lifting were discussed at length with the patient. She will contact me prior to her follow-up appointment in 2 months should any questions or concerns arise. Feel free to call me at any time should questions regarding her orthopedic management arise. Orders: Orders PT Evaluation and Treatment Today M25.311 - Other instability, right shoulder Coding Level of Care Code Global (43359) Diagnoses Rotator cuff insufficiency of right shoulder M25.311
== END 2023-01-07 12:19 | disposition home or self-care (01) ==
PROVIDERS: PCP Internal Medicine; Visit Provider Orthopaedic Surgery
DX: M25.311 Other instability, right shoulder (principal)
CPT/HCPCS: 99024

== ENCOUNTER → 2023-01-07 11:40 | Outpatient (BNVA) | payer OTHER, SELFPAY | PROVIDERS: PCP Internal Medicine; Visit Provider Orthopaedic Surgery ==

== ENCOUNTER 2023-03-04 11:21 | Outpatient (AMB) | payer OTHER, SELFPAY ==
--- NOTE | 2023-03-04 11:22 | MHC.OFFVIS ---
Intake Intake Visit Reasons: PO-Rt RTC Repair 11/13/22 DR Intake Note: Deborah is a 77 year old female who presents for a post operative appointment S/P Right RTC 11/13/2022 . The patient reports mild intermittent discomfort in her shoulder. She denies any fevers or chills. She has resumed her exercise program. Allergies lisinopril Allergy (Severe, Verified 03/04/23 11:29) Cough amlodipine [From Norvasc] Allergy (Mild, Verified 03/04/23 11:29) Swelling irbesartan [From Avapro] Allergy (Mild, Verified 03/04/23 11:29) Swelling latex [Latex] Allergy (Mild, Verified 03/04/23 11:29) RASH meperidine [Meperidine] Allergy (Mild, Verified 03/04/23 11:29) NAUSEA & VOMITING oxycodone Allergy (Mild, Verified 03/04/23 11:29) AGITATION propoxyphene [From Darvocet A500] Allergy (Mild, Verified 03/04/23 11:29) AGITATION nickel Allergy (Verified 03/04/23 11:29) Rash Medication List - Last Reconciled 03/04/23 by Sam Castro MD atorvastatin 1 tab PO DAILY [calcium ] cyclosporine 0.05% (Restasis) 1 drp ophthalmic (eye) BID hydrocodone-acetaminophen 5-325 mg 1 tab PO Q4H PRN 7 days metformin ER 1 tab PO BID metoprolol succinate ER 1 tab PO DAILY omeprazole 1 cap PO DAILY spironolactone 1 tab PO DAILY PFSH Medical History (Updated 10/21/22 @ 10:08 by Sam Castro MD) Diabetes mellitus Abnormal colonoscopy Tubular adenoma of colon DJD (degenerative joint disease) High cholesterol HTN (hypertension) Surgical History (Updated 03/04/23 @ 11:34 by Carola Mccartney CMA) Hx of repair of right rotator cuff (11/13/22) H/O colonoscopy S/P trigger finger release H/O thumb surgery H/O eye surgery H/O hernia repair H/O: hysterectomy Social History Patient Tobacco Use Status: Former Tobacco user Quit Date: 2013 Tobacco use type: Cigarette Years Smoked: 40 Second Hand Smoke Exposure: No Physical Exam Const Other: Well-nourished well-developed very friendly female awake alert and oriented x3 in no acute distress Extrem Other: Bilateral upper extremity examination shows good capillary refill, no skin lesions noted, normal sensation light touch Right shoulder examination shows that the surgical incisions are well healed, no erythema, full range of motion when compared to her right shoulder, minimal discomfort with resisted forward flexion, no discomfort with resisted internal or external rotation Assessment & Plan Assessment & Plan (1) Right shoulder pain: Code(s): M25.511 - Pain in right shoulder Plan Ms. Leavitt continues to do very well after undergoing right shoulder rotator cuff repair surgery on 11/13/2022. She will continue with her exercise program. The do's and don'ts of lifting were discussed at length with the patient. She will contact me prior to her follow-up appointment in 3 months should any questions or concerns arise. Feel free to call me at any time should questions regarding her orthopedic management arise. I spent 20 minutes in reviewing the patient's records and imaging studies, seeing the patient and documenting in the medical record. Coding Level of Care Code Est Pt Level 2 (61634) Diagnoses Right shoulder pain M25.511
== END 2023-03-04 12:00 | disposition home or self-care (01) ==
PROVIDERS: PCP Internal Medicine; Visit Provider Orthopaedic Surgery
DX: S46.011D Strain of muscle(s) and tendon(s) of the rotator cuff of right shoulder, subsequent encounter (principal); M25.511 Pain in right shoulder
CPT/HCPCS: 99213

== ENCOUNTER → 2023-03-04 11:21 | Outpatient (BNVA) | payer OTHER, SELFPAY | PROVIDERS: PCP Internal Medicine; Visit Provider Orthopaedic Surgery | DX: Z47.89 Encounter for other orthopedic aftercare (principal); M25.511 Pain in right shoulder; Z98.890 Other specified postprocedural states | CPT/HCPCS: 99212 ==

== ENCOUNTER 2023-03-22 13:13 | Outpatient (REF) | payer OTHER, SELFPAY | END 2023-03-22 13:14 | disposition home or self-care (01) | LOC: HO.MAMMO 13:13 | PROVIDERS: PCP Internal Medicine; Visit Provider Internal Medicine | DX: Z12.31 Encounter for screening mammogram for malignant neoplasm of breast (principal) | CPT/HCPCS: 77063; 77067 ==

== ENCOUNTER → 2023-03-22 13:30 | Outpatient (BNV) | payer OTHER, SELFPAY | PROVIDERS: PCP Internal Medicine; Visit Provider Radiology Diagnostic Radiology | DX: Z12.31 Encounter for screening mammogram for malignant neoplasm of breast (principal) | CPT/HCPCS: 77063; 77067 ==

== ENCOUNTER 2023-07-08 10:56 | Outpatient (AMB) | payer OTHER, SELFPAY ==
--- NOTE | 2023-07-08 11:09 | MHC.OFFVIS ---
Vital Signs 07/08/23 11:10 Height 5 ft 2 in Weight 180 lb BMI 32.9 Intake Visit Reasons: ov-Rt RTC Repair 11/13/22 , Piriformis syndrome of left side Intake Note: Deborah is a 77 year old female who presents for a follow up after Rigth RTC repair on 11/13/2022 Patient reports she is doing great but has a little discomfort with certain movements. Today she is most concerned with pain along the posterior aspect of her left hip. She continues to do yoga for exercise. She denies any numbness or tingling in either of her lower extremities. Allergies lisinopril Allergy (Severe, Verified 07/08/23 11:12) Cough amlodipine [From Norvasc] Allergy (Mild, Verified 07/08/23 11:12) Swelling irbesartan [From Avapro] Allergy (Mild, Verified 07/08/23 11:12) Swelling latex [Latex] Allergy (Mild, Verified 07/08/23 11:12) RASH meperidine [Meperidine] Allergy (Mild, Verified 07/08/23 11:12) NAUSEA & VOMITING oxycodone Allergy (Mild, Verified 07/08/23 11:12) AGITATION propoxyphene [From Darvocet A500] Allergy (Mild, Verified 07/08/23 11:12) AGITATION nickel Allergy (Verified 07/08/23 11:12) Rash Medication List - Last Reconciled 07/08/23 by Sam Castro MD atorvastatin 1 tab PO DAILY [calcium ] cyclosporine 0.05% (Restasis) 1 drp ophthalmic (eye) BID hydrocodone-acetaminophen 5-325 mg 1 tab PO Q4H PRN 7 days metoprolol succinate ER 1 tab PO DAILY omeprazole 1 cap PO DAILY spironolactone 1 tab PO DAILY PFSH Medical History Diabetes mellitus Abnormal colonoscopy Tubular adenoma of colon DJD (degenerative joint disease) High cholesterol HTN (hypertension) Surgical History Hx of repair of right rotator cuff (11/13/22) H/O colonoscopy S/P trigger finger release H/O thumb surgery H/O eye surgery H/O hernia repair H/O: hysterectomy Social History Patient Tobacco Use Status: Former Tobacco user Tobacco use type: Cigarette Years Smoked: 40 Second Hand Smoke Exposure: No Physical Exam Vital Signs: BMI result Body Mass Index 32.9 Const Other: Well-nourished well-developed very friendly female awake alert and oriented x3 in no acute distress Extrem Other: Bilateral upper extremity examination shows good capillary refill, no skin lesions noted, normal sensation light touch Right shoulder examination shows full active range of motion when compared to her left shoulder, minimal discomfort with range of motion, 5/5 strength with supraspinatus testing Left hip examination shows minimal discomfort with range of motion, tenderness over her piriformis fossa, no overlying skin lesions Assessment & Plan Assessment & Plan (1) Piriformis syndrome of left side: Code(s): G57.02 - Lesion of sciatic nerve, left lower limb Category: Medical (2) Right shoulder pain: Code(s): M25.511 - Pain in right shoulder Category: Medical Plan Ms. Leavitt is doing well after undergoing right shoulder rotator cuff repair surgery on 11/13/2022. She will continue with her home stretching program to prevent stiffness. She does have pain along the posterior aspect of her left hip most likely due to piriformis syndrome. Thus, I did give the patient a prescription to go to formal physical therapy. Stretching exercises were also demonstrated to the patient. She will contact me prior to her follow-up appointment in 6-8 weeks should any questions or concerns arise. Feel free to call me at any time should questions regarding her orthopedic management arise. I spent 21 minutes in reviewing the patient's records and imaging studies, seeing the patient and documenting in the medical record. Orders: Orders PT Evaluation and Treatment Today G57.02 - Lesion of sciatic nerve, left lower limb Coding Level of Care Code Est Pt Level 3 (45674) Diagnoses Piriformis syndrome of left side G57.02 Right shoulder pain M25.511
[2023-07-08 11:10] VITALS: BMI 32.9
== END 2023-07-08 11:29 | disposition home or self-care (01) ==
PROVIDERS: PCP Internal Medicine; Visit Provider Orthopaedic Surgery
DX: G57.02 Lesion of sciatic nerve, left lower limb (principal); M25.511 Pain in right shoulder
CPT/HCPCS: 99213

== ENCOUNTER → 2023-07-08 10:56 | Outpatient (BNVA) | payer OTHER, SELFPAY | PROVIDERS: PCP Internal Medicine; Visit Provider Orthopaedic Surgery | DX: G57.02 Lesion of sciatic nerve, left lower limb (principal); M25.511 Pain in right shoulder | CPT/HCPCS: 99212 ==

== ENCOUNTER 2023-10-12 11:18 | Outpatient (AMB) | payer OTHER, SELFPAY ==
--- NOTE | 2023-10-12 11:23 | A.OFFVIS_ITS ---
Vital Signs 10/12/23 11:28 Height 5 ft 2 in Weight 180 lb BMI 32.9 Intake Visit Reasons: ov-Rt RTC Repair 11/13/22 , Left buttock pain Intake Note: Deborah a 78 year old female who presents with complaints of mild intermittent discomfort in her right shoulder after undergoing right shoulder rotator cuff repair surgery on 11/13/2022. She denies any fevers or chills. She has completed formal physical therapy. She continues to go to the [facility] for exercise classes. Today the patient is most concerned about pain in her left buttock. She states that the therapy for the pain did not help. She has tried Tylenol which gives her minimal relief. She denies any pains radiating down either lower extremity. She denies any lower extremity weakness. Allergies lisinopril Allergy (Severe, Verified 10/12/23 11:32) Cough amlodipine [From Norvasc] Allergy (Mild, Verified 10/12/23 11:32) Swelling irbesartan [From Avapro] Allergy (Mild, Verified 10/12/23 11:32) Swelling latex [Latex] Allergy (Mild, Verified 10/12/23 11:32) RASH meperidine [Meperidine] Allergy (Mild, Verified 10/12/23 11:32) NAUSEA & VOMITING oxycodone Allergy (Mild, Verified 10/12/23 11:32) AGITATION propoxyphene [From Darvocet A500] Allergy (Mild, Verified 10/12/23 11:32) AGITATION nickel Allergy (Verified 10/12/23 11:32) Rash Medication List - Last Reconciled 10/12/23 by Sam Castro MD atorvastatin 1 tab PO DAILY [calcium ] cyclosporine 0.05% (Restasis) 1 drp ophthalmic (eye) BID hydrocodone-acetaminophen 5-325 mg 1 tab PO Q4H PRN 7 days metoprolol succinate ER 1 tab PO DAILY omeprazole 1 cap PO DAILY spironolactone 1 tab PO DAILY PFSH Medical History Diabetes mellitus Abnormal colonoscopy Tubular adenoma of colon DJD (degenerative joint disease) High cholesterol HTN (hypertension) Surgical History Hx of repair of right rotator cuff (11/13/22) H/O colonoscopy S/P trigger finger release H/O thumb surgery H/O eye surgery H/O hernia repair H/O: hysterectomy Social History Patient Tobacco Use Status: Former Tobacco user Tobacco use type: Cigarette Years Smoked: 40 Second Hand Smoke Exposure: No Physical Exam Vital Signs: BMI result Body Mass Index 32.9 Const Other: Well-nourished well-developed very friendly female awake alert and oriented x3 in no acute distress Extrem Other: Bilateral lower extremity examination shows good capillary refill, no skin lesions noted, normal sensation light touch Right shoulder examination shows full range of motion when compared to her left shoulder, 4+ out of 5 strength with supraspinatus testing, no instability Left hip examination shows tenderness over her piriformis fossa, no overlying skin lesions, negative straight leg raise test on the left at 70 degrees Assessment & Plan Assessment & Plan (1) Right shoulder pain: Code(s): M25.511 - Pain in right shoulder Category: Medical (2) Piriformis syndrome of left side: Code(s): G57.02 - Lesion of sciatic nerve, left lower limb Category: Medical (3) Left buttock pain: Code(s): M79.18 - Myalgia, other site Plan Ms. Leavitt continues to do well after undergoing right shoulder rotator cuff repair surgery on 11/13/2022. She will continue with her exercise program. The do's and don'ts of lifting were discussed at length with the patient. The patient also has symptoms consistent with left piriformis syndrome. Thus, I will arrange for her to have an evaluation in our pain management clinic. She will follow-up as instructed. She will contact me prior to her follow-up appointment in 2-3 months should her symptoms worsen in any way. I did give her a prescription for Celebrex to help in the meantime. Feel free to call me at any time should questions regarding her orthopedic management arise. I spent 21 minutes in reviewing the patient's records and imaging studies, seeing the patient and documenting in the medical record. Orders: Referrals Pain Management Referral G57.02 - Lesion of sciatic nerve, left lower limb Medications: New celecoxib (Celebrex) 200 mg PO DAILY PRN 30 caps 3RF pain Coding Level of Care Code Est Pt Level 3 (47759) Complex EM visit Add On G2211 Diagnoses Right shoulder pain M25.511 Piriformis syndrome of left side G57.02 Left buttock pain M79.18
[2023-10-12 11:28] VITALS: BMI 32.9
== END 2023-10-12 11:45 | disposition home or self-care (01) ==
PROVIDERS: PCP Internal Medicine; Visit Provider Orthopaedic Surgery
DX: M25.511 Pain in right shoulder (principal); G57.02 Lesion of sciatic nerve, left lower limb; M79.18 Myalgia, other site
CPT/HCPCS: 99213

== ENCOUNTER → 2023-10-12 11:18 | Outpatient (BNVA) | payer OTHER, SELFPAY | PROVIDERS: PCP Internal Medicine; Visit Provider Orthopaedic Surgery | DX: M25.511 Pain in right shoulder (principal); M79.18 Myalgia, other site; G57.02 Lesion of sciatic nerve, left lower limb | CPT/HCPCS: 99212 ==

== ENCOUNTER 2023-11-10 13:48 | Outpatient (AMB) | payer OTHER, SELFPAY ==
--- NOTE | 2023-11-10 13:51 | MHC.OFFVIS ---
Vital Signs 11/10/23 13:56 Height 5 ft 2 in Weight 177 lb 4 oz BMI 32.4 BP 127/82 Blood Pressure Location Lt brachial Position Sitting Respiration 16 Pulse 65 Pulse Source Pulse Oximeter Pulse Oximetry (%) 94 Oxygen Delivery Method Room Air Intake Visit Reasons: Lesion of sciatic nerve, left lower limb Intake Note: Patient comes in for initial visit was referred by [facility] orthopedics. Reports pain 3-4/10. Allergies lisinopril Allergy (Severe, Verified 11/10/23 14:02) Cough amlodipine [From Norvasc] Allergy (Mild, Verified 11/10/23 14:02) Swelling irbesartan [From Avapro] Allergy (Mild, Verified 11/10/23 14:02) Swelling latex [Latex] Allergy (Mild, Verified 11/10/23 14:02) RASH meperidine [Meperidine] Allergy (Mild, Verified 11/10/23 14:02) NAUSEA & VOMITING oxycodone Allergy (Mild, Verified 11/10/23 14:02) AGITATION propoxyphene [From Darvocet A500] Allergy (Mild, Verified 11/10/23 14:02) AGITATION nickel Allergy (Verified 11/10/23 14:02) Rash HPI Comments Details: Abe is very pleasant 78 years old female who presents in my office with complains in pain in projection of the left ischial bursa. She reports that this pain started 3 months ago reports that her pain today as 8/10. She reports that the only thing which helped with her pain is application of the cold to the area of the bursa but she states that she can not sit all the time on the called surface. She reports that she can sleep normally, she can do activities of daily living, she can take care of herself, she can function normally. Cold applications temporarily alleviate her pain and so does the movements. Oral Celebrex helps her pain minimally. She reports that she took Celebrex once a day. Nothing aggravates her pain. In terms of tissue damage he reports her pain as dull, sore, aching, heavy. She had physical therapy 8 sessions for this problem and that was 1 month ago and she did not report any improvement. Did not have any images done for this condition. She never had any injections. Her past medical history significant for hypertension diabetes type 2 arthritis and history of kidney stones. She stated that she was on metformin for her diabetes however now she stopped metformin because it causes her diarrhea. She has not for any medications for diabetes and she reports that she has her blood sugar very unstable. Surgical history in 2022 she had rotator cuff repair by Dr. Castro.. Social history she is retired individual she stopped smoking cigarettes 10 years ago she does not drink alcohol she drinks caffeinated beverages in form of tea and she denies recreational drugs. FORMERLY [facility] Medical History Diabetes mellitus Abnormal colonoscopy Tubular adenoma of colon DJD (degenerative joint disease) High cholesterol HTN (hypertension) Surgical History Hx of repair of right rotator cuff (11/13/22) H/O colonoscopy S/P trigger finger release H/O thumb surgery H/O eye surgery H/O hernia repair H/O: hysterectomy Social History Patient Tobacco Use Status: Former Tobacco user Tobacco use type: Cigarette Years Smoked: 40 Second Hand Smoke Exposure: No Review of Systems Const All systems reviewed & are unremarkable except as noted in HPI and below ENT Reports Normal hearing present Neuro Reports Normal hearing present, Denies Abnormal speech present, Denies confusion and Denies Sensory deficit (Neuro) Psych Denies confusion Physical Exam Vital Signs: Last Vital Signs Pulse 65 11/10/23 13:56 Resp 16 11/10/23 13:56 BP 127/82 11/10/23 13:56 Pulse Ox 94 11/10/23 13:56 Oxygen Delivery Method Room Air 11/10/23 13:56 BMI result Body Mass Index 32.4 Const General: no acute distress; No confusion Orientation/consciousness: patient oriented x3 and No confusion Eyes General: appearance normal, both eyes and all related structures Pupils: Equal, round and reactive pupils present EOM: EOMs intact bilaterally Neck Neck: Yes full ROM Chest Chest palpation & inspection: normal inspection of the chest Resp Effort & Inspection: normal respiratory effort, able to speak in complete sentences, normal respiratory pattern, no audible wheezes and no cough Cardio Jugular venous distension: no JVD GI Inspection: Yes normal to inspection Back/Spine/Pelvis Other: Severe tenderness on palpation in projection of the ischial bone on the left and in the position of the ischial bursa, lateral rotation of the hip on the left does not aggravate her pain. She denies pain radiation into the left lower extremity she reports that pain stays only in the projection of the ?sitting bone ?. Neuro General: patient oriented x3, gait normal and No confusion Cranial nerves: Yes CN's II-XII intact bilaterally, Yes Equal, round and reactive pupils present, Yes Normal hearing present and Yes Ability to bilaterally elevate shoulders present Speech: No Abnormal speech present Gait exam (Neuro): Normal gait present Motor exam (neuro): 5/5 motor strength present throughout Sensory Exam: No Sensory deficit (Neuro) Extrem General: No pedal edema Psych Speech and movement: Normal speech and movement present Affect: normal affect Attitude: cooperative Thought process: Normal thought process present Thought content: Normal thought content present Insight: Good insight present (Psych) Judgement: Good judgement present (Psych) Assessment & Plan Assessment & Plan (1) Ischial bursitis of left side: Code(s): M70.72 - Other bursitis of hip, left hip Category: Medical Plan This patient will be diagnose with ischial bursitis on the left. She tried physical therapy and it was not effective for her. It is somewhat difficult to perform injection with ultrasound guidance for ischial bursitis. It is successful only in very thin slim patient's. This patient is not 1 of them. We agreed that I will increase her Celebrex to 2 pills a day. I will see her in 2 months and if she still would be complaining on this pain I will consider chronic opioid therapy for this patient. Medications: New celecoxib (Celebrex) 100 mg PO BID 30 days 60 caps 2RF Discontinued celecoxib (Celebrex) Discontinued Reason: Doctor's Order 200 mg PO DAILY PRN 30 caps 3RF pain Coding Level of Care Code New Pt Level 3 (07525) Diagnoses Ischial bursitis of left side M70.72
[2023-11-10 13:56] VITALS: BP 127/82; PULSE 65; RESP 16; O2SAT 94; BMI 32.4
== END 2023-11-10 14:14 | disposition home or self-care (01) ==
PROVIDERS: PCP Internal Medicine; Visit Provider Anesthesiology
DX: M70.72 Other bursitis of hip, left hip (principal)
CPT/HCPCS: 99203

== ENCOUNTER → 2023-11-10 13:48 | Outpatient (BNVA) | payer OTHER, SELFPAY | PROVIDERS: PCP Internal Medicine; Visit Provider Anesthesiology | DX: M70.72 Other bursitis of hip, left hip (principal) | CPT/HCPCS: 99202 ==

== ENCOUNTER 2023-12-15 14:04 | Outpatient (AMB) | payer OTHER, SELFPAY ==
--- NOTE | 2023-12-15 14:33 | MHC.OFFVIS ---
Intake Visit Reasons: OV - Rt RTC Repair 11/13/22 DR Intake Note: Deborah is a 78 year old female who presents today for a follow up visit s/p right rotator cuff repair DOS: 11/13/2022. Patient reports she is doing well. She reports mild intermittent discomfort in her right shoulder. She continues with her physical therapy exercises. She denies any fevers or chills. Allergies lisinopril Allergy (Severe, Verified 12/15/23 14:37) Cough amlodipine [From Norvasc] Allergy (Mild, Verified 12/15/23 14:37) Swelling irbesartan [From Avapro] Allergy (Mild, Verified 12/15/23 14:37) Swelling latex [Latex] Allergy (Mild, Verified 12/15/23 14:37) RASH meperidine [Meperidine] Allergy (Mild, Verified 12/15/23 14:37) NAUSEA & VOMITING oxycodone Allergy (Mild, Verified 12/15/23 14:37) AGITATION propoxyphene [From Darvocet A500] Allergy (Mild, Verified 12/15/23 14:37) AGITATION nickel Allergy (Verified 12/15/23 14:37) Rash Medication List - Last Reconciled 12/16/23 by Sam Castro MD atorvastatin 1 tab PO DAILY [calcium ] celecoxib (Celebrex) 100 mg PO BID 30 days cyclosporine 0.05% (Restasis) 1 drp ophthalmic (eye) BID hydrocodone-acetaminophen 5-325 mg 1 tab PO Q4H PRN 7 days metoprolol succinate ER 1 tab PO DAILY omeprazole 1 cap PO DAILY spironolactone 1 tab PO DAILY PFSH Medical History Diabetes mellitus Abnormal colonoscopy Tubular adenoma of colon DJD (degenerative joint disease) High cholesterol HTN (hypertension) Surgical History Hx of repair of right rotator cuff (11/13/22) H/O colonoscopy S/P trigger finger release H/O thumb surgery H/O eye surgery H/O hernia repair H/O: hysterectomy Social History Patient Tobacco Use Status: Former Tobacco user Tobacco use type: Cigarette Years Smoked: 40 Second Hand Smoke Exposure: No Physical Exam Extrem Other: Right shoulder examination shows that the surgical incisions are well healed, no erythema, minimal discomfort with range of motion, full active range of motion when compared to her right shoulder, 5/5 strength with supraspinatus testing, no instability Assessment & Plan Assessment & Plan (1) Right shoulder pain: Code(s): M25.511 - Pain in right shoulder Category: Medical Plan Ms. Leavitt continues to do well after undergoing right shoulder rotator cuff repair surgery on 11/13/2022. She will continue with her laead-ye-fbetpy exercises to prevent stiffness. The do's and don'ts of lifting were discussed at length with the patient. She will follow up with me on an as-needed basis should her symptoms worsen in any way. Feel free to call me at any time should questions regarding her orthopedic management arise. I spent 21 minutes in reviewing the patient's records and imaging studies, seeing the patient and documenting in the medical record. Coding Level of Care Code Est Pt Level 3 (77689) Complex EM visit Add On G2211 Diagnoses Right shoulder pain M25.511
== END 2023-12-15 15:05 | disposition home or self-care (01) ==
LOC: HO.HOS 14:05
PROVIDERS: PCP Internal Medicine; Visit Provider Orthopaedic Surgery
DX: M25.511 Pain in right shoulder (principal)
CPT/HCPCS: 99213; G2211

== ENCOUNTER → 2023-12-15 14:04 | Outpatient (BNVA) | payer OTHER, SELFPAY | PROVIDERS: PCP Internal Medicine; Visit Provider Orthopaedic Surgery | DX: M25.511 Pain in right shoulder (principal); Z98.890 Other specified postprocedural states | CPT/HCPCS: 99212 ==

== ENCOUNTER 2024-01-05 12:45 | Outpatient (AMB) | payer OTHER, SELFPAY ==
--- NOTE | 2024-01-05 12:51 | MHC.OFFVIS ---
Vital Signs 01/05/24 12:55 Height 5 ft 2 in Weight 173 lb 6 oz BMI 31.7 BP 126/66 Blood Pressure Location Lt brachial Position Sitting Respiration 14 Pulse 52 Pulse Source Pulse Oximeter Pulse Oximetry (%) 94 Oxygen Delivery Method Room Air Intake Visit Reasons: 2 months F/U Intake Note: Patient comes in for 2 months follow up. Reports pain 3/10. Allergies lisinopril Allergy (Severe, Verified 01/05/24 12:57) Cough amlodipine [From Norvasc] Allergy (Mild, Verified 01/05/24 12:57) Swelling irbesartan [From Avapro] Allergy (Mild, Verified 01/05/24 12:57) Swelling latex [Latex] Allergy (Mild, Verified 01/05/24 12:57) RASH meperidine [Meperidine] Allergy (Mild, Verified 01/05/24 12:57) NAUSEA & VOMITING oxycodone Allergy (Mild, Verified 01/05/24 12:57) AGITATION propoxyphene [From Darvocet A500] Allergy (Mild, Verified 01/05/24 12:57) AGITATION nickel Allergy (Verified 01/05/24 12:57) Rash HPI Comments Details: Deborah is back in my office 2 months after I increase the dose of her Celebrex to treat her ischial bursitis. The patient reports today that her pain in the bursa is much better. She reports overall pain today 3/10. She recently suffered from shingles and now she is getting gabapentin for neuropathy. She took a course of valacyclovir for her shingles. I am almost sure that her shingle pains will be improving in the future. As of her ischial pain I can only recommend her to get a sitting donut to help her pain in the ischial bursa. Prior: c/o in pain in projection of the left ischial bursa. She reports that this pain started 3 months ago reports that her pain today as 8/10. She reports that the only thing which helped with her pain is application of the cold to the area of the bursa but she states that she can not sit all the time on the called surface. S Cold applications temporarily alleviate her pain and so does the movements. [facility]LY [facility] Medical History Diabetes mellitus Abnormal colonoscopy Tubular adenoma of colon DJD (degenerative joint disease) High cholesterol HTN (hypertension) Surgical History Hx of repair of right rotator cuff (11/13/22) H/O colonoscopy S/P trigger finger release H/O thumb surgery H/O eye surgery H/O hernia repair H/O: hysterectomy Social History Patient Tobacco Use Status: Former Tobacco user Tobacco use type: Cigarette Years Smoked: 40 Second Hand Smoke Exposure: No Review of Systems Const All systems reviewed & are unremarkable except as noted in HPI and below ENT Reports Normal hearing present Neuro Reports Normal hearing present, Denies Abnormal speech present, Denies confusion and Denies Sensory deficit (Neuro) Psych Denies confusion Physical Exam Vital Signs: Last Vital Signs Pulse 52 01/05/24 12:55 Resp 14 01/05/24 12:55 BP 126/66 01/05/24 12:55 Pulse Ox 94 01/05/24 12:55 Oxygen Delivery Method Room Air 01/05/24 12:55 BMI result Body Mass Index 31.7 Const General: no acute distress; No confusion Orientation/consciousness: patient oriented x3 and No confusion Eyes General: appearance normal, both eyes and all related structures Pupils: Equal, round and reactive pupils present EOM: EOMs intact bilaterally Neck Neck: Yes full ROM Chest Chest palpation & inspection: normal inspection of the chest Resp Effort & Inspection: normal respiratory effort, able to speak in complete sentences, normal respiratory pattern, no audible wheezes and no cough Cardio Jugular venous distension: no JVD GI Inspection: Yes normal to inspection Back/Spine/Pelvis Other: Severe tenderness on palpation in projection of the ischial bone on the left and in the position of the ischial bursa, lateral rotation of the hip on the left does not aggravate her pain. She denies pain radiation into the left lower extremity she reports that pain stays only in the projection of the ?sitting bone ?. Neuro General: patient oriented x3, gait normal and No confusion Cranial nerves: Yes CN's II-XII intact bilaterally, Yes Equal, round and reactive pupils present, Yes Normal hearing present and Yes Ability to bilaterally elevate shoulders present Speech: No Abnormal speech present Gait exam (Neuro): Normal gait present Motor exam (neuro): 5/5 motor strength present throughout Sensory Exam: No Sensory deficit (Neuro) Extrem General: No pedal edema Psych Speech and movement: Normal speech and movement present Affect: normal affect Attitude: cooperative Thought process: Normal thought process present Thought content: Normal thought content present Insight: Good insight present (Psych) Judgement: Good judgement present (Psych) Assessment & Plan Assessment & Plan (1) Ischial bursitis of left side: Code(s): M70.72 - Other bursitis of hip, left hip Category: Medical Plan In terms of ischial bursitis on the left patient feels much better. She developed shingles and now her pain in the back radiating into the anterior surface of the abdomen is most significant for her. I will continue her Celebrex as it was prescribed before. When she will be out of her refills she will give us a call and I will prescribe her another dose of Celebrex with refills. I believe that shingles pain will be better, she was given a course of valacyclovir. Next appointment as needed. Coding Level of Care Code Est Pt Level 3 (57505) Diagnoses Ischial bursitis of left side M70.72
[2024-01-05 12:55] VITALS: BP 126/66; PULSE 52; RESP 14; O2SAT 94; BMI 31.7
== END 2024-01-05 13:07 | disposition home or self-care (01) ==
PROVIDERS: PCP Internal Medicine; Visit Provider Anesthesiology
DX: M70.72 Other bursitis of hip, left hip (principal)
CPT/HCPCS: 99213

== ENCOUNTER → 2024-01-05 12:45 | Outpatient (BNVA) | payer OTHER, SELFPAY | PROVIDERS: PCP Internal Medicine; Visit Provider Anesthesiology | DX: M70.72 Other bursitis of hip, left hip (principal) | CPT/HCPCS: 99212 ==

== ENCOUNTER 2024-05-18 12:46 | Outpatient (AMB) | payer MEDICARE, SELFPAY ==
--- NOTE | 2024-05-18 12:51 | MHC.OFFVIS ---
Vital Signs 05/18/24 12:54 Height 5 ft 2 in Weight 173 lb BMI 31.6 Intake Visit Reasons: OV-Rt RTC Repair 11/13/22 DR-springtime follow up Intake Note: Deborah is a 78 year old female who presents today for a follow up visit after undergoing right rotator cuff repair, DOS: 11/13/2022. Patient reports she is doing well. She reports mild intermittent discomfort in her shoulder. She continues with her home exercise program. Allergies lisinopril Allergy (Severe, Verified 05/18/24 12:55) Cough amlodipine [From Norvasc] Allergy (Mild, Verified 05/18/24 12:55) Swelling irbesartan [From Avapro] Allergy (Mild, Verified 05/18/24 12:55) Swelling latex [Latex] Allergy (Mild, Verified 05/18/24 12:55) RASH meperidine [Meperidine] Allergy (Mild, Verified 05/18/24 12:55) NAUSEA & VOMITING oxycodone Allergy (Mild, Verified 05/18/24 12:55) AGITATION propoxyphene [From Darvocet A500] Allergy (Mild, Verified 05/18/24 12:55) AGITATION nickel Allergy (Verified 05/18/24 12:55) Rash Medication List - Last Reconciled 05/18/24 by Sam Castro MD atorvastatin 1 tab PO DAILY [calcium ] celecoxib (Celebrex) 100 mg PO BID 30 days cyclosporine 0.05% (Restasis) 1 drp ophthalmic (eye) BID hydrocodone-acetaminophen 5-325 mg 1 tab PO Q4H PRN 7 days metoprolol succinate ER 1 tab PO DAILY omeprazole 1 cap PO DAILY spironolactone 1 tab PO DAILY PFSH Medical History Diabetes mellitus Abnormal colonoscopy Tubular adenoma of colon DJD (degenerative joint disease) High cholesterol HTN (hypertension) Surgical History Hx of repair of right rotator cuff (11/13/22) H/O colonoscopy S/P trigger finger release H/O thumb surgery H/O eye surgery H/O hernia repair H/O: hysterectomy Social History Patient Tobacco Use Status: Former Tobacco user Tobacco use type: Cigarette Years Smoked: 40 Second Hand Smoke Exposure: No Physical Exam Vital Signs: BMI result Body Mass Index 31.6 Const Other: Well-nourished well-developed very friendly female awake alert and oriented x3 in no acute distress Extrem Other: Right shoulder examination shows full range motion when compared to her left shoulder, 5/5 strength with supraspinatus testing, no instability Assessment & Plan Assessment & Plan (1) Right shoulder pain: Code(s): M25.511 - Pain in right shoulder Category: Medical Plan Ms. Leavitt issues to do well after undergoing right shoulder rotator cuff repair surgery. She will continue with her home exercise program. The do's and don'ts of lifting were discussed at length with the patient. She will follow up with me on an as-needed basis should any questions or concerns arise. I spent 21 minutes in reviewing the patient's records and imaging studies, seeing the patient and documenting in the medical record. Coding Level of Care Code Est Pt Level 3 (28089) Complex EM visit Add On G2211 Diagnoses Right shoulder pain M25.511
[2024-05-18 12:54] VITALS: BMI 31.6
--- OUTSIDE RECORDS SUMMARY | 2024-05-18 15:18 | XMS_ITS | Encounter Summary ---
Author Organization [facility] Address [id number] [place] [id number] Care Team Providers Care [employer] Name Role Phone Joie Humphries MD Primary Care Provider [phone] Encounter Details Date Type Department Care Team (Late st Contact Info) Description 05/16/2024 Lab Requisition [facility] Lab [address] [facility] [place] [address] Joie Humphries MD [address] [place] [address] [place] [id number] Hypercalcemia; Type 2 diabetes mellitus without complications (CMS/HCC V24, CMS/HCC V28); Elevation of levels of liver transaminase levels; Pure hypercholesterolemia, unspecified Social History Tobacco Use Types Packs/Day Years Used Date Smoking Tobacco: Never Assessed Comments Unknown Sex and Gender Information Value Date Recorded Sex Assigned at Not on file Legal Sex Female 10:22 AM EST Gender Identity Not on file Sexual Orientation Not on file documented as of this encounter Plan of Treatment Scheduled Orders Name Type Priority Associated Diagnoses Orde r Schedule Comprehensive metabolic panel Lab Routine Hypercalcemia Type 2 diabetes mellitus without complications Elevation of levels of liver transaminase levels Ordered: 05/16/2024 Lipid panel with reflex to direct LDL Lab Routine Pure hypercholesterolemia, unspecified Ordered: 05/16/2024 Microalbumin creatinine urine ratio Lab Routine Type 2 diabetes mellitus without complications Ordered: 05/16/2024 Hemoglobin A1c Lab Routine Type 2 diabetes mellitus without complications Ordered: 05/16/2024 documented as of this encounter Visit Diagnoses Diagnosis Hypercalcemia Type 2 diabetes mellitus without complications (CMS/HCC V24, CMS/HCC V28) Elevation of levels of liver transaminase levels Pure hypercholesterolemia, unspecified documented in this encounter Care Teams [employer] Relationship Specialty Start Date End Date Joie Humphries MD [address] [place] [address] [place] [id number] PCP - General Internal Medicine 02/10/24 documented as of this encounter
--- OUTSIDE RECORDS SUMMARY | 2024-05-18 15:18 | XMS_ITS ---
Author Organization [facility] Address [address] [place] [id number] Care Team Providers Care Day Light Relief Operator Name Role Phone Joie Humphries Primary Care Provider Unavailab Scottie Moeller Jr Unavailable [phone] Allergies Allergen (clinical drug ingredient) Drug/Non Drug Allergy documented on EMR Reaction Allergy Type Onset Date Status Metoprolol Succinate only certain mfg Drug Allergy Active lisinopril Lisinopril Unknown Drug Allergy Activ e meperidine Demerol Unknown Drug Allergy Active Darvocet A500 Unknown Drug Allergy Act sherif irbesartan Avapro Unknown Drug Allergy Active acetaminophen / oxycodone Percocet Unknown Drug Allergy Active amlodipine Norvasc Unknown Drug Allergy Active REASON FOR VISIT Patient presents today for ELEVATED LFT'S Medications Medication SIG (Take, Route, Frequency, Duration) Notes Start Date End Date Status Aldactone 25 MG 1 tablet Orally for 30 day(s) Active Metoprolol Succinate 100 MG Orally Active Crestor 20 MG 1 tablet Orally Once a day Active Fish Oil 1000 MG 1 capsule Orally Onc e a day Active Vitamin D (Cholecalciferol) 10 MCG (400 UNIT) 1 tablet Orally Once a day for 30 day(s) Active Omeprazole 20 MG 1 capsule 30 minutes before morning meal Orally Once a day for 30 day(s) Active Social History Tobacco Use: Social History Observation Description Date Details (start date - stop date) Former Smoker NA - NA Tobacco Use/Smoking Question Answer Notes Patient is a former smoker How long has it been since you last smoked? 1-5 years Problems Problem Type SNOMED Code ICD Code Onset Dates Problem Status W/U Status Risk Notes Problem [id number] Gastroesophageal reflux disease, unspecified whether esophagitis present (K21.9) Active confirmed Vital Signs Temperature 95.9 degrees Fahrenheit 11/29/19 24 Blood pressure systolic 118 mm Hg 11/29/19 24 Blood pressure diastolic 78 mm Hg 024 Height 62 in 11/29/2023 Weight 173 lb 8 oz lbs 11/29/2023 BMI 31.73 kg/m2 11/29/2023 Encounters Encounter Location Date Provider Diagnosis [facility] [address] [place] [address] 11/29/2023 Scottie Shultz Jr Elevated liver function tests R79.89 and Gastroesophageal reflux disease, unspecified whether esophagitis present K21.9 Assessments Encounter Date Diagnosis (ICD Code) Assessment Notes Treatment Notes Treatment Clinical Notes Section Notes 11/29/2023 Elevated liver function tests (ICD-10 - R79.89) Liver disease - resources material was printed We discussed the causes of elevated liver function tests today. We discussed fatty liver. Her ultrasound is consistent with this. She will have further evaluation with autoimmune, viral, and metabolic liver function testing. Gastroesophageal reflux disease symptoms are well-controlled on her present regimen. We discussed diet, lifestyle modifications, and weight management regarding the treatment of reflux. Followup will be in 6-12 months. Today's visit was 30 minutes. 11/29/2023 Gastroesophageal reflux disease, unspecified whether esophagitis present (ICD-10 - K21.9) We discussed the causes of elevated liver function tests today. We discussed fatty liver. Her ultrasound is consistent with this. She will have further evaluation with autoimmune, viral, and metabolic liver function testing. Gastroesophageal reflux disease symptoms are well-controlled on her present regimen. We discussed diet, lifestyle modifications, and weight management regarding the treatment of reflux. Followup will be in 6-12 months. Today's visit was 30 minutes. Plan Of Treatment Treatment Notes Assessment Notes Elevated liver function tests Liver dise ase - resources material was printed Pending Test Test Name Order Date LIVER PROFILE 11/29/2023 IRON + IBC (FE) 11/29/2023 FERRITIN 11/29/2023 CBC w/o DIFF 11/29/2023 PROTHROMBIN TIME (PT, INR) 11/29/2023 MITOCHONDRIAL AB 11/29/2023 SMOOTH MUSCLE ANTIBODIES 11/29/2023 Liver Fibrosis Pnl 11/29/2023 GABRIEL Reflex Titer and Pattern 11/29/2023 Next Appt Details Follow Up: 1 Year, Pamela dash on: Progress Notes * REGGIE MONTOYA MDOB:1945 (78 yo F)Acc No.[id number]:11/29/2023 Progress Notes Patient:REGGIE JACK Provider:?Scottie Shultz MD :1945???Age:78 Y???Sex:Female D ate:11/29/2023 Address:[address] [place] [address], [id number] Pcp:Joie Humphries Subjective: * Chief Complaints: * ???1. Patient presents today for ELEVATED LFT'S. * HPI: ???New symptom(s):? The patient is a pleasant 78-year-old woman who returns today for followup. She was last seen in July of 2021 with diarrheal symptoms which subsequently resolved. She underwent colonoscopy in November 2021 which showed a tubular adenoma and normal colonic biopsies. We reviewed this today. She's been noted to have elevated liver function tests and was referred back from her primary care provider. Imaging studies were done in May of this year because of her abnormal liver function tests. This showed no acute findings and a course and hepatic echo texture consistent with fatty infiltration and/or hepatocellular disease. Apparently, there were elevations of her transaminases, which are not available today. These will be obtained. We reviewed this today. She feels well and has no complaints of jaundice, pruritus, or fatigue. Weight and appetite have been stable. ?She has a history of gastroesophageal reflux disease and has been using omeprazole intermittently for symptoms, usually about 2 times per week. She has no dysphagia, hematemesis, or melena. * Medical History:?Hypertensio n, Hyperlipidemia, Degenerative joint disease, Colonoscopy 11/29, tubular adenoma, followup optional based on age, Diabetes mellitus, Zoster infection, Fatty liver. * Surgical History:?Hysterecto my, fiber disease , Skin tag right eyelid , Hernia repair 1970, Rotator cuff repair/right 11/30. * Family History:?Father: dece ased, diagnosed with HTN (hypertension), Heart disease.?Mother: 94 yrs.?Siblings: , sister.? no known hx of colon cancer,polyps , or liver ds sister living cancer in kidney. * Social History:?Tobacco Use:?Tobacco Use/Smoking?Patient is a?former smoker,?How long has it been since you last smoked??1-5 years.?Drugs/Alcohol:?Alcohol Screen?Points: 1, Interpretation: Negative.?Miscellaneous:?Marital status: 30 years. 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 * Medications:?Taking Aldacton e 25 MG Tablet 1 tablet Orally , Taking Vitamin D (Cholecalciferol) 10 MCG (400 UNIT) Tablet Chewable 1 tablet Orally Once a day, Taking Omeprazole 20 MG Capsule Delayed Release 1 capsule 30 minutes before morning meal Orally Once a day, Taking Crestor 20 MG Tablet 1 tablet Orally Once a day, Taking Fish Oil 1000 MG Tablet Chewable 1 capsule Orally Once a day, Taking Metoprolol Succinate 100 MG Tablet Extended Release Orally , Discontinued MiraLax (colon prep) 17 GM/SCOOP Powder mixed with Gatorade or Crystal Light Orally begin at 5:00 p.m. the day before the procedure, Discontinued metFORMIN HCl ER 750 MG Tablet Extended Release 24 Hour 1 tablet with evening meal Orally twice a day, Discontinued Calcium 1 1 1 Oral QD, Medication List reviewed and reconciled with the patient * Allergies:?Demerol, Percocet , Darvocet A500, Norvasc, Avapro, Lisinopril, Metoprolol Succinate: only certain mfg. Objective: * Vitals:?Wt: 173 lb 8 oz, Ht: 62 in, BMI:31.73 Index, BP: 118/78 mm Hg, Temp: 95.9. * Examination: ???General Examination: ???On examination today, reggie appears well. Skin is anicteric. Lungs are clear. Heart shows regular rate and rhythm. Abdomen is soft without focal mass or tenderness. Extremities are without edema. Assessment: * Assessment: 1.?Elevated liver function t ests - R79.89 (Primary)?2.?Gastroesophageal reflux disease, unspecified whether esophagitis present - K21.9? We discussed the causes of e levated liver function tests today. We discussed fatty liver. Her ultrasound is consistent with this. She will have further evaluation with autoimmune, viral, and metabolic liver function testing. Gastroesophageal reflux disease symptoms are well-controlled on her present regimen. We discussed diet, lifestyle modifications, and weight management regarding the treatment of reflux. Followup will be in 6-12 months. Today's visit was 30 minutes. Plan: * Treatment: * Procedure Codes:?G9903 Pt sc rn tbco id as non user, G9745 DOC RSN FOR NOT SCREEN/REC F/U HBP * Preventive Medicine:? ??Counseling:?Care goal follow-up plan:?Above Normal BMI Follow-up?Giving encouragement to exercise,?BMI management provided?Yes.? ??Urinary Incontinence:?Urinary Incontinence?Assessment:?Present,?Plan of care documented:?Yes,?Type of plan of care:?Modification of medications contributing to UI.? ??Screenings:?Fall Risk Screening?Fall Risk Assessment:?No falls in the past year,?Screening:?No falls in the past year,?Assessment:?Not performed, no reason specified,?Plan of Care:?Not documented, no reason specified.? * Follow Up:?1 Year, prn * * Sign off status: Completed true * Provider:?Scottie Shultz MD Date:?1 Generated for Jose tony/Casey/Linda on:?05/18/2024 03:17 PM EDT History and Physical Notes * HPI (History of Present Illness) Category Sub-Category Detail Notes Category Not es New symptom(s) The patient is a pleasant 78-year-old woman who returns today for followup. She was last seen in July of 2021 with diarrheal symptoms which subsequently resolved. She underwent colonoscopy in November 2021 which showed a tubular adenoma and normal colonic biopsies. We reviewed this today. She's been noted to have elevated liver function tests and was referred back from her primary care provider. Imaging studies were done in May of this year because of her abnormal liver function tests. This showed no acute findings and a course and hepatic echo texture consistent with fatty infiltration and/or hepatocellular disease. Apparently, there were elevations of her transaminases, which are not available today. These will be obtained. We reviewed this today. She feels well and has no complaints of jaundice, pruritus, or fatigue. Weight and appetite have been stable. She has a history of gastroesophageal reflux disease and has been using omeprazole intermittently for symptoms, usually about 2 times per week. She has no dysphagia, hematemesis, or melena. Examination Category Sub-Category Detail Notes Category Not es General Examination On exami nation today, reggie appears well. Skin is anicteric. Lungs are clear. Heart shows regular rate and rhythm. Abdomen is soft without focal mass or tenderness. Extremities are without edema.
--- OUTSIDE RECORDS SUMMARY | 2024-05-18 15:18 | XMS_ITS | Clinical Summary ---
Author Organization [address] [facility] Address [address] [place] [address] Phone Care Team Providers Care Meeting Manager Name Role Phone Joie Humphries MD Primary Care Provider [phone] Encounters Date Type Department Care Team Description 05/16/2024 Lab Requisition [facility] - Main Lab [address] [facility] [employer] [place] [address] Joie Humphries MD Hypercalcemia; Type 2 diabetes mellitus without complications (CMS/HCC V24, CMS/HCC V28); Elevation of levels of liver transaminase levels; Pure hypercholesterolemia, unspecified from Last 3 Months Social History Tobacco Use Types Packs/Day Years Used Date Smoking Tobacco: Never Assessed Comments Unknown Sex and Gender Information Value Date Recorded Sex Assigned at Not on file Legal Sex Female 10:22 AM EST Gender Identity Not on file Sexual Orientation Not on file Plan of Treatment Health Maintenance Due Date Last Done Comments Diabetes: Annual Foot Exam 1955 Diabetes: Annual Retina Eye Exam 1955 DTaP,Tdap,and Td Vaccines (1 - Tdap) 1965 Pneumococcal Vaccine: 50+ Years (1 of 2 - PCV) 1965 Zoster Vaccines (1 of 2) 1996 RSV Immunization Adult Patients (1 - 1-dose 75+ series) 2021 Cholesterol Screening (Lipid Panel) 01/06/2022 Depression Screening 01/06/2022 Falls Risk Assessment 01/06/2022 Hepatitis C Screening 01/06/2022 Medicare Annual Wellness Visit 01/06/2022 Osteoporosis Screening (Bone Density Screening) 01/06/2022 Social Influencers of Health Screening 01/06/2022 COVID-19 Vaccine (1 - 2023-2 5 season) 2023 Diabetes: Annual Urine Albumin-Creatinine Ratio (uACR) 05/02/2024 Influenza Vaccine (Season Ended) 2024 Diabetes: Blood Sugar Contro l Test (HGBA1C) 11/02/2024 05/02/2024, 02/10/2024 Diabetes: Annual GFR (Glomerular Filtration Rate) 05/02/2025 05/02/2024, 02/10/2024 Hypertension/CHF/CAD Annual BMP Blood Test 05/02/2025 05/02/2024, 02/10/2024 HIB Vaccines Aged Out No longer eligi ble based on patient's age to complete this topic HPV Vaccines Aged Out No longer eligi ble based on patient's age to complete this topic Hepatitis A Vaccines Aged Out No long er eligible based on patient's age to complete this topic Hepatitis B Vaccines Aged Out No long er eligible based on patient's age to complete this topic IPV Vaccines Aged Out No longer eligi ble based on patient's age to complete this topic MMR Vaccines Aged Out No longer eligi ble based on patient's age to complete this topic Meningococcal ACWY Vaccine Aged Out N o longer eligible based on patient's age to complete this topic Meningococcal B Vaccine Aged Out No l onger eligible based on patient's age to complete this topic RSV Immunization Patients Under 20 months Aged Out No longer eligible b ased on patient's age to complete this topic Varicella Vaccines Aged Out No longer eligible based on patient's age to complete this topic Procedures Procedure Name Priority Date/Time Associated Diagnosis Comments PARATHYROID HORMONE INTACT Routine 05/02/2024 8:46 AM EDT Diabetes mellitus ([facility] V24, [facility] V28) Hypercalcemia Essential hypertension, benign Type II diabetes mellitus ([facility] V24, [facility] V28) PHOSPHORUS Routine 05/02/2024 8:46 AM EDT Diabetes mellitus ([facility]/HCC V24, [facility] V28) Hypercalcemia Essential hypertension, benign Type II diabetes mellitus (CMS/HCC V24, CMS/HCC V28) HEMOGLOBIN A1C Routine 05/02/2024 8:46 AM EDT Diabetes mellitus ([facility] V24, [facility] V28) Hypercalcemia Essential hypertension, benign Type II diabetes mellitus (CMS/HCC V24, [facility] V28) COMPREHENSIVE METABOLIC PANEL Routine 05/02/2024 8:46 AM EDT Diabetes mellitus ([facility] V24, [facility] V28) Hypercalcemia Essential hypertension, benign Type II diabetes mellitus ([facility] V24, [facility] V28) from Last 3 Months Results * Phosphorus (05/02/2024 8:46 AM EDT) [facility] Phosphorus 3.2 2.5 - 4.5 mg/dL LAB CHEMISTRY METHOD 05/02/2024 10:55 AM EDT [facility] Blood Venous blood specimen / Unknown Venipuncture / Unknown 05/02/2024 8:46 AM EDT 05/02/2024 10:16 AM EDT Joie Humphries MD LAB BLOOD ORDERABLES Final Re sult Performing Organization Address [facility]/ZIP Co de Phone Number [facility] [address] [place] [address], [place] [phone] * Parathyroid hormone intact (05/02/2024 8:46 AM EDT) [facility] PTH 71.9 18.5 - 88.0 pcg/mL LAB CHEMISTRY METHOD 05/02/2024 11:24 AM EDT [facility] Blood Venous blood specimen / Unknown Venipuncture / Unknown 05/02/2024 8:46 AM EDT 05/02/2024 10:16 AM EDT Joie Humphries MD LAB BLOOD ORDERABLES Final Re sult [facility] [address] [place] [address], [place] [phone] * (ABNORMAL) Hemoglobin A1c (05/02/2024 8:46 AM EDT) [facility] Hemoglobin A1C 6.6(H) <6.5 % LAB CHEMISTRY METHOD 05/02/2024 12:40 PM [facility] Mean Bld Glu Estim. 143 mg/dL LAB CHEMISTRY METHOD 05/02/2024 12:40 PM [facility] Blood Venous blood specimen / Unknown Venipuncture / Unknown 05/02/2024 8:46 AM EDT 05/02/2024 10:22 AM EDT us Joie Humphries MD LAB BLOOD ORDERABLES Final Re sult [facility] [address] [place] [address], [place] [phone] * (ABNORMAL) Comprehensive metabolic panel (05/02/2024 8:46 AM EDT) Sodium 140 133 - 145 mmol/L LAB CHEMISTRY METHOD 05/02/2024 10:55 AM [facility] Potassium 4.4 3.5 - 5.5 mmol/L LAB CHEMISTRY METHOD 05/02/2024 10:55 AM [facility] Chloride 103 96 - 110 mmol/L LAB CHEMISTRY METHOD 05/02/2024 10:55 AM [facility] CO2 31 21 - 32 mmol/L LAB CHEMISTRY METHOD 05/02/2024 10:55 AM [facility] Anion Gap 6 3 - 11 LAB CHEMISTRY METHOD 05/02/2024 10:55 AM [facility] Glucose 115(H) 70 - 100 mg/dL LAB CHEMISTRY METHOD 05/02/2024 10:55 AM [facility] BUN 17 5 - 25 mg/dL LAB CHEMISTRY METHOD 05/02/2024 10:55 AM [facility] Creatinine 0.74 0.50 - 1.10 mg/dL LAB CHEMISTRY METHOD 05/02/2024 10:55 AM [facility] eGFR 83 >=60 mL/min/1. 73m2 LAB CHEMISTRY METHOD 05/02/2024 10:55 AM T [facility] Comment:Calculation based on the??Chronic Kidney Disease Epidemiology Collaboration (CKD-EPI) equation refit??without adjustment for race. BUN/Creatinine Ratio 23.0 LAB CHEMISTRY METHOD 05/02/2024 10:55 AM T [facility] Calcium 10.6(H) 8.5 - 10.5 mg/dL LAB CHEMISTRY METHOD 05/02/2024 10:55 AM T [facility] AST (SGOT) 53(H) 10 - 42 unit/L LAB CHEMISTRY METHOD 05/02/2024 10:55 AM [facility] ALT (SGPT) 72(H) 10 - 60 unit/L LAB CHEMISTRY METHOD 05/02/2024 10:55 AM [facility] Alkaline Phosphatase 146(H) 42 - 121 unit/L LAB CHEMISTRY METHOD 05/02/2024 10:55 AM [facility] Total Protein 7.0 6.0 - 8.0 g/dL LAB CHEMISTRY METHOD 05/02/2024 10:55 AM [facility] Albumin 3.7 3.2 - 5.0 g/dL LAB CHEMISTRY METHOD 05/02/2024 10:55 AM [facility] Total Bilirubin 0.5 0.0 - 1.4 mg/dL LAB CHEMISTRY METHOD 05/02/2024 10:55 AM T [facility] Blood Venous blood specimen / Unknown Venipuncture / Unknown 05/02/2024 8:46 AM EDT 05/02/2024 10:16 AM EDT us Joie Humphries MD LAB BLOOD ORDERABLES Final Re sult [facility] [address] [place] [address], [place] [phone] from Last 3 Months Insurance [employer] - [place] MEDICARE ADVANTAGE Care Teams Meeting Manager Relationship Specialty Start Date End Date Joie Humphries MD [address] [place] [address] [place] [address] PCP - General Internal Medicine 02/10/24
--- OUTSIDE RECORDS SUMMARY | 2024-05-18 15:18 | XMS_ITS | Patient Health Record ---
Author Organization [facility] Address [address] [place] [address] Care Team Providers Care Sewing Department Supervisor Name Role Phone Joie Humphries Primary Care Provider Scottie Edwards Jr Unavailable [phone] Allergies Allergen (clinical drug ingredient) Drug/Non Drug [...] Active amlodipine Norvasc Unknown Drug Allergy Active Results Component Value Reference Range Notes MAMMOGRAM DIGITAL BILATERAL SCREEN Reviewed date:11/29/2023 01:59:37 PM Interpretation:Normal Performing Lab: Notes/Report: Normal Reason For Referral No Information Medications Medication SIG (Take, Route, Frequency, Duration) [...] Once a day for 30 day(s) Active Immunizations Vaccine Route Administration Date Status Comme nts Flu vaccine no Preserv 3 and > Unknown 11/24/2016 Admin istered Influenza Unknown 10/09/2020 Administered Influenza Unknown 11/01/2023 Administered Pneumococcal Unknown 11/09/2023 Administered Social History Tobacco Use: Social History Observation Description Date Details (start date - stop date) Former Smoker NA - NA Tobacco Use/Smoking Question Answer Notes Patient is a former smoker How long has it been since you last smoked? 1-5 years Problems Problem Type SNOMED Code ICD Code Onset Dates Problem Status W/U Status Risk Notes Problem 856035836 Colon cancer screening (Z12.11) Active confirmed Problem 079040716 Elevated liver function tests (R79.89) Active confirmed Problem 177520362 Gas (R14.3) Active confirmed Problem 722200094 Fatty liver (K76.0) Active confirmed Problem 07866297 Hepatomegaly (R16.0) Active confirmed Problem 602816555 Long-term curren t use of high risk medication other than anticoagulant (Z79.899) Active confirmed Problem 97536097 Diarrhea, unspecified type (R19.7) Active confirmed Problem 246377284 Gastroesophageal reflux disease, unspecified whether esophagitis present (K21.9) Active confirmed Vital Signs Temperature 95.9 degrees Fahrenheit 11/29/2023 Blood pressure diastolic 78 mm Hg 11/29/2023 Height 62 in 11/29/2023 Blood pressure systolic 118 mm Hg 11/29/2023 Weight 173 lb 8 oz lbs 11/29/2023 BMI 31.73 kg/m2 11/29/2023 Encounters Encounter Location Date Provider Diagnosis [facility] [address] [facility] [address] [place] [phone] 11/29/2023 Scottie Shultz Jr Elevated liver function [...] visit was 30 minutes. Plan Of Treatment Pending Test Test Name Order Date LIVER PROFILE 11/29/2023 IRON + IBC (FE) 11/29/2023 FERRITIN 11/29/2023 CBC w/o DIFF 11/29/2023 PROTHROMBIN TIME (PT, INR) 11/29/2023 MITOCHONDRIAL AB 11/29/2023 SMOOTH MUSCLE ANTIBODIES 11/29/2023 Liver Fibrosis Pnl 11/29/2023 GABRIEL Reflex Titer and Pattern 11/29/2023 Future Test Test Name Order Date COLONOSCOPY 10/08/2017 COLONOSCOPY 11/21/2021 Insurance Providers Payer Name Payer Address Payer Phone Subscriber Number Group Number Insured Name Patient Relationship to Insured Coverage Start Date Coverage End Date [facility] [address] [address] [place] [address] [id number] REGGIE MONTOYA Self - patient is the insured MEDICARE OF [place] [address] [facility] [place] [id number] REGGIE MONTOYA Self - patient is the insured Medical (General) History Medical History History ICD Code Hypertension Hyperlipidemia Degenerative joint disease Colonoscopy 11/29, tubular adenoma, foll owup optional based on age Diabetes mellitus Zoster infection Fatty liver Surgical History Surgery Date(Month/Year) Hysterectomy, fiber disease Skin tag right eyelid Hernia repair 1970 Rotator cuff repair/right 11/30
== END 2024-05-18 13:08 | disposition home or self-care (01) ==
LOC: HO.HOS 12:47
PROVIDERS: PCP Internal Medicine; Visit Provider Orthopaedic Surgery
DX: M25.511 Pain in right shoulder (principal)
CPT/HCPCS: 99213; G2211

== ENCOUNTER → 2024-05-18 12:46 | Outpatient (BNVA) | payer MEDICARE, SELFPAY | PROVIDERS: PCP Internal Medicine; Visit Provider Orthopaedic Surgery | DX: M25.511 Pain in right shoulder (principal) | CPT/HCPCS: 99212 ==

== ENCOUNTER 2024-05-22 14:49 | Outpatient (REF) | payer MEDICARE, SELFPAY ==
--- OUTSIDE RECORDS SUMMARY | 2024-05-22 17:21 | XMS_ITS | Encounter Summary ---
Author Organization [facility] Address [address] [place] [phone] Care Team Providers Care Graphite Grinder Name Role Phone Joie Humphries MD Primary Care Provider [phone] Encounter Details Date Type Department Care Team (Late st Contact Info) Description 05/16/2024 Lab Requisition [facility] - Main Lab [address] [facility] [address] [place] [address] Joie Humphries MD [address] [place] [address] [place] [address] Hypercalcemia; Type 2 diabetes mellitus without complications [...] unspecified documented in this encounter Care Teams Graphite Grinder Relationship Specialty Start Date End Date Joie Humphries MD [address] [place] [address] [place] [address] PCP - General Internal Medicine 02/10/24 documented as of this encounter
--- OUTSIDE RECORDS SUMMARY | 2024-05-22 17:21 | XMS_ITS ---
Author Organization [facility] Address [address] [place] [id number] Care Team Providers Care Flow Floor Attendant Name Role Phone Joie Humphries Primary Care Provider Unavailab Scottie Moeller Jr Unavailable [phone] Allergies Allergen (clinical drug ingredient) Drug/Non [...] Problem Status W/U Status Risk Notes Problem [id number] Gastroesophageal reflux disease, unspecified whether esophagitis present (K21.9) Active confirmed Vital Signs Temperature 95.9 degrees Fahrenheit 11/29/19 24 Blood pressure systolic 118 mm Hg 11/29/19 24 Blood pressure diastolic 78 mm Hg 024 Height 62 in 11/29/2023 Weight 173 lb 8 oz lbs 11/29/2023 BMI 31.73 kg/m2 11/29/2023 Encounters Encounter Location Date Provider Diagnosis [facility] [address] [place] [address] 11/29/2023 Scottie Shultz Jr Elevated liver function [...] * REGGIE MONTOYA MDOB:1945 (78 yo F)Acc No.[id number]:11/29/2023 Progress Notes Patient:REGGIE JACK Provider:?Scottie Shultz MD :1945???Age:78 Y???Sex:Female D ate:11/29/2023 Address:[address] [place] [address], [id number] Pcp:Joie Humphries Subjective: * Chief Complaints: * [...] years. 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 * Medications:?Taking Aldacton e 25 MG Tablet [...] Shultz MD Date:?1 Generated for Jose tony/Casey/Linda on:?05/22/2024 05:21 PM EDT History and Physical Notes * [...]
--- OUTSIDE RECORDS SUMMARY | 2024-05-22 17:22 | XMS_ITS | Clinical Summary ---
Author Organization [address] [facility] Address [address] [place] [address] Phone Care Team Providers Care White Kid Buffer Name Role Phone Joie Humphries MD Primary Care Provider [phone] Encounters Date Type Department Care Team Description 05/16/[address] [facility] Lab [address] [facility] [place] [address] Joie Humphries MD Hypercalcemia; Type [...] Routine 05/02/2024 8:46 AM EDT Diabetes mellitus ([facility] V24, [facility] V28) Hypercalcemia Essential hypertension, benign Type II diabetes mellitus ([facility] V24, [facility] V28) PHOSPHORUS Routine 05/02/2024 8:46 AM EDT Diabetes mellitus ([facility] V24, [facility] V28) Hypercalcemia Essential hypertension, benign Type II diabetes mellitus ([facility]/HCC V24, [facility]/H[facility] V28) HEMOGLOBIN A1C Routine 05/02/2024 8:46 AM EDT Diabetes mellitus ([facility] V24, [facility] V28) Hypercalcemia Essential hypertension, benign Type II diabetes mellitus ([facility]/H[facility] V24, [facility] V28) COMPREHENSIVE METABOLIC PANEL Routine 05/02/2024 8:46 AM EDT Diabetes mellitus ([facility] V24, [facility] V28) Hypercalcemia Essential hypertension, benign Type II diabetes mellitus ([facility] V24, [facility] V28) from Last 3 Months Results * Phosphorus (05/02/2024 8:46 AM EDT) [facility] Phosphorus 3.2 2.5 - 4.5 mg/dL LAB CHEMISTRY METHOD 05/02/2024 10:[address] [facility] Blood Venous blood specimen / Unknown Venipuncture / Unknown 05/02/2024 8:46 AM EDT 05/02/2024 10:16 AM EDT Joie Humphries MD LAB BLOOD ORDERABLES Final Re sult Performing Organization Address [facility]/ZIP Co de Phone Number [facility] [address] [place] [address], [place] [phone] * Parathyroid hormone intact (05/02/2024 8:46 AM EDT) [facility] PTH 71.9 18.5 - 88.0 pcg/mL LAB CHEMISTRY METHOD 05/02/2024 11:[address] [facility] Blood Venous blood specimen / Unknown Venipuncture / Unknown 05/02/2024 8:46 AM EDT 05/02/2024 10:16 AM EDT Joie Humphries MD LAB BLOOD ORDERABLES Final Re sult [facility] [address] [place] [address], [place] [phone] * (ABNORMAL) Hemoglobin A1c (05/02/2024 8:46 AM EDT) [facility] Hemoglobin A1C 6.6(H) <6.5 % LAB CHEMISTRY METHOD 05/02/2024 12:40 PM [facility] Mean Bld Glu Estim. 143 mg/dL LAB CHEMISTRY METHOD 05/02/2024 12:40 PM [facility] Blood Venous blood specimen / Unknown Venipuncture / Unknown 05/02/2024 8:46 AM EDT 05/02/2024 10:22 AM EDT us Joie Humphries MD LAB BLOOD ORDERABLES Final Re sult [facility] [address] [place] [address], [place] [phone] * (ABNORMAL) Comprehensive metabolic panel (05/02/2024 8:46 AM EDT) Sodium 140 133 - 145 mmol/L LAB CHEMISTRY METHOD 05/02/2024 10:55 AM [facility] Potassium 4.4 3.5 - 5.5 mmol/L LAB CHEMISTRY METHOD 05/02/2024 10:55 AM [facility] Chloride 103 96 - 110 mmol/L LAB CHEMISTRY METHOD 05/02/2024 10:55 AM [facility] CO2 31 21 - 32 mmol/L LAB CHEMISTRY METHOD 05/02/2024 10:55 AM [facility] Anion Gap 6 3 - 11 LAB CHEMISTRY METHOD 05/02/2024 10:55 AM [facility] Glucose 115(H) 70 - 100 mg/dL LAB CHEMISTRY METHOD 05/02/2024 10:55 AM [facility] BUN 17 5 - 25 mg/dL LAB CHEMISTRY METHOD 05/02/2024 10:55 AM [facility] Creatinine 0.74 0.50 - 1.10 mg/dL LAB CHEMISTRY METHOD 05/02/2024 10:55 AM [facility] eGFR 83 >=60 mL/min/1. 73m2 LAB CHEMISTRY METHOD 05/02/2024 10:[address] [facility] Comment:Calculation based on the??Chronic Kidney Disease Epidemiology Collaboration (CKD-EPI) equation refit??without adjustment for race. BUN/Creatinine Ratio 23.0 LAB CHEMISTRY METHOD 05/02/2024 10:[address] [facility] Calcium 10.6(H) 8.5 - 10.5 mg/dL LAB CHEMISTRY METHOD 05/02/2024 10:[address] [facility] AST (SGOT) 53(H) 10 - 42 unit/L LAB CHEMISTRY METHOD 05/02/2024 10:55 AM [facility] ALT (SGPT) 72(H) 10 - 60 unit/L LAB CHEMISTRY METHOD 05/02/2024 10:55 AM [facility] Alkaline Phosphatase 146(H) 42 - 121 unit/L LAB CHEMISTRY METHOD 05/02/2024 10:55 AM [facility] Total Protein 7.0 6.0 - 8.0 g/dL LAB CHEMISTRY METHOD 05/02/2024 10:55 AM [facility] Albumin 3.7 3.2 - 5.0 g/dL LAB CHEMISTRY METHOD 05/02/2024 10:55 AM [facility] Total Bilirubin 0.5 0.0 - 1.4 mg/dL LAB CHEMISTRY METHOD 05/02/2024 10:[address] [facility] Blood Venous blood specimen / Unknown Venipuncture / Unknown 05/02/2024 8:46 AM EDT 05/02/2024 10:16 AM EDT us Joie Humphries MD LAB BLOOD ORDERABLES Final Re sult [facility] [address] [place] [address], [place] [phone] from Last 3 Months Insurance [employer] - [place] MEDICARE ADVANTAGE Care Teams White Kid Buffer Relationship Specialty Start Date End Date Joie Humphries MD [address] [place] [address] [place] [address] PCP - General Internal Medicine 02/10/24
--- OUTSIDE RECORDS SUMMARY | 2024-05-22 17:22 | XMS_ITS | Patient Health Record ---
Author Organization [facility] Address [address] [place] [address] Care Team Providers Care [employer] Professor Name Role Phone Joie Humphries Primary Care Provider Scottie Edwards Jr Unavailable Allergies Allergen (clinical drug ingredient) Drug/Non Drug [...] Problem Status W/U Status Risk Notes Problem [id number] Colon cancer screening (Z12.11) Active confirmed Problem 343785903 Elevated liver function tests (R79.89) Active confirmed Problem 266058331 Gas (R14.3) Active confirmed Problem 643656744 Fatty liver (K76.0) Active confirmed Problem 63236119 Hepatomegaly (R16.0) Active confirmed Problem 785149308 Long-term curren t use of high risk medication other than anticoagulant (Z79.899) Active confirmed Problem 15626711 Diarrhea, unspecified type (R19.7) Active confirmed Problem 961004387 Gastroesophageal reflux disease, unspecified whether esophagitis present (K21.9) Active confirmed Vital Signs Temperature 95.9 degrees Fahrenheit 11/29/2023 Blood pressure diastolic 78 mm Hg 11/29/2023 Height 62 in 11/29/2023 Blood pressure systolic 118 mm Hg 11/29/2023 Weight 173 lb 8 oz lbs 11/29/2023 BMI 31.73 kg/m2 11/29/2023 Encounters Encounter Location Date Provider Diagnosis [facility] [address] [facility] [address] [place] [phone] 11/29/2023 Scottie Shultz Jr Elevated liver function [...] Insured Coverage Start Date Coverage End Date [facility] [address] [address] [place] [address] [id number] REGGIE MONTOYA Self - patient is the insured MEDICARE OF [place] [address] [facility] [place] [id number] REGGIE MONTOYA Self - patient is the insured Medical (General) History Medical History History ICD Code Hypertension Hyperlipidemia Degenerative joint disease Colonoscopy 11/29, tubular adenoma, foll owup optional based on age Diabetes mellitus Zoster infection Fatty liver Surgical History Surgery Date(Month/Year) Hysterectomy, fiber disease Skin tag right eyelid Hernia repair 1970 Rotator cuff repair/right 11/30
== END 2024-05-22 14:50 | disposition home or self-care (01) ==
LOC: HO.MAMMO 14:49
PROVIDERS: PCP Internal Medicine; Visit Provider Internal Medicine
DX: Z12.31 Encounter for screening mammogram for malignant neoplasm of breast (principal)
CPT/HCPCS: 77063; 77067

== ENCOUNTER → 2024-05-22 15:15 | Outpatient (BNV) | payer MEDICARE, SELFPAY | PROVIDERS: PCP Internal Medicine; Visit Provider Internal Medicine | DX: Z12.31 Encounter for screening mammogram for malignant neoplasm of breast (principal) | CPT/HCPCS: 77063; 77067 ==